=== PATIENT | female | born 1935 | race Caucasian/White ===

== ENCOUNTER 2018-08-03 18:54 | Inpatient (IN) | payer MEDICARE, OTHER ==
[~2018-08-03] VITALS: Ht 165.1 cm; Wt 60.9 kg
[~2018-08-03 18:54] MED LIST: ACET500 PO; AMLO5 PO; ASCO1ER PO; ASPI81CH PO; ASPI81EC; Antivert25 MG PO; BENAML20/5 PO; CARB200 PO; Colace100 MG PO; DIPH50 PO; ERGO400 PO; ESOM20 PO; FAMO40 PO; HYDACE5 PO; HYDACE5325 PO; HYOS0.375T; Icaps Tablet1 EACH PO; Keflex500 MG PO; MAGOXI400 PO; NEXIUM PO; Naprosyn500 MG PO; OMEP20ER; OMEP20ER PO; OXYACE5T PO; POTCHL20ER PO; SENEXON-S TABL1 EACH PO; TOCO400 PO; Valium5 MG PO; Vitamin C100 M1 PO; Zofran Odt4 MG SL; [UNRECOGNIZED DRUG - CODE] PO; [UNRECOGNIZED DRUG - OTHER]
[2018-08-03] MEDS ORDERED: FISH OIL 1,0001 EAC1 PO (19:23)
[2018-08-03] MEDS ORDERED: ESOM20 PO (19:24)
[2018-08-03] MEDS ORDERED: Vitamin B Comple1 EA PO (19:25)
[2018-08-03] MEDS ORDERED: HYDCHL12.5 PO (19:26)
[2018-08-03] MEDS ORDERED: Super Calcium600 MG PO (19:28)
[2018-08-03] MEDS ORDERED: LOSARTAN POTAS100 MG PO (19:29)
[2018-08-03 20:45] LABS: Bilirubin, Urine Neg (Neg); Blood, Urine Neg (Neg); Glucose Qualitative, Urine Neg (Neg); Ketones, Urine Neg (Neg); Leukocyte Esterase, Urine Neg (Neg); Nitrite, Urine Neg (Neg); Protein, Urine Neg (Neg); Specific Gravity, Urine 1.005 (1.003-1.022); Urobilinogen, Urine NORM (Normal)
[2018-08-03 20:50] LABS: Appearance, Urine Clear (Clear); Color, Urine Yellow (P-Yellow)
[2018-08-03 21:04] LABS: BASOPHILS ABSOLUTE AUTO 0.03 K/mm3 (0.00-0.23); BASOPHILS PERCENT AUTO 0 % (0-2); EOSINOPHILS ABSOLUTE AUTO 0.01 K/mm3 (0.00-0.68); EOSINOPHILS PERCENT AUTO 0 % (0-6); Hematocrit 34.5 % (33.0-51.0); IMMATURE GRAN PERCENT AUTO 1 % (0-1); LYMPHOCYTES ABSOLUTE AUTO 0.75 K/mm3 (0.84-5.20); LYMPHOCYTES PERCENT AUTO 4 % (21-46); MONOCYTES PERCENT AUTO 4 % (4-13); Mean Corpuscular HGB 31.3 pg (26.0-34.0); Mean Corpuscular HGB Conc 34.8 g/dL (31.5-36.5); Mean Corpuscular Volume 90 fL (80-100); Mean Platelet Volume 9.3 fL (9.1-12.4); NEUTROPHILS ABSOLUTE AUTO 18.19 K/mm3 (1.96-9.15); NEUTROPHILS PERCENT AUTO 91 % (41-73); Platelet Count 219 K/mm3 (150-400); RDW Coefficient Variation 12.2 % (11.7-14.2); Red Blood Cell Count 3.84 M/mm3 (3.80-5.20); White Blood Cell Count 19.88 K/mm3 (4.00-11.30)
[2018-08-03 21:18] LABS: International Normalized Ratio 1.02; Prothrombin Time Results 10.5 Sec (9.7-11.5)
[2018-08-03 21:29] LABS: Alanine Aminotransfer (ALT/SGP 25 U/L (12-78); Albumin, Blood 3.7 g/dL (3.4-5.0); Albumin/Globulin Ratio 1.2 (0.8-1.8); Alk Phos 105 U/L (50-136); Anion Gap 9 mmol/L (6-16); Aspartate Aminotrans (AST/SGOT 19 U/L (12-37); Bilirubin, Total 0.3 mg/dL (0.1-1.0); Blood Urea Nitrogen 11 mg/dL (8-24); Bun/Creatinine Ratio 17.8 (12.0-20.0); CO2, Blood 26 mmol/L (21-32); Calcium, Blood 8.4 mg/dL (8.5-10.1); Chloride, Blood 90 mmol/L (98-108); Creatinine, Blood 0.62 mg/dL (0.40-1.00); Glomerular Filtration Rate >60 (60-); Glucose, Blood 155 mg/dL (70-99); Potassium, Blood 3.5 mmol/L (3.5-5.5); Sodium, Blood 125 mmol/L (136-145); Total Protein, Blood 6.7 g/dL (6.4-8.2)
[2018-08-04] MEDS ORDERED: LOVA40 PO (22:30)
[2018-08-04] MEDS ORDERED: SLOW FE142 MG PO (22:32)
[2018-08-04] MEDS ORDERED: ACET500 PO (22:33)
[2018-08-06 05:53] LABS: BASOPHILS ABSOLUTE AUTO 0.03 K/mm3 (0.00-0.23); BASOPHILS PERCENT AUTO 0 % (0-2); EOSINOPHILS ABSOLUTE AUTO 0.11 K/mm3 (0.00-0.68); EOSINOPHILS PERCENT AUTO 1 % (0-6); Hematocrit 25.6 % (33.0-51.0); IMMATURE GRAN ABSOLUTE AUTO 0.07 K/mm3 (0.00-0.10); IMMATURE GRAN PERCENT AUTO 1 % (0-1); LYMPHOCYTES ABSOLUTE AUTO 1.57 K/mm3 (0.84-5.20); LYMPHOCYTES PERCENT AUTO 17 % (21-46); MONOCYTES ABSOLUTE AUTO 0.96 K/mm3 (0.16-1.47); MONOCYTES PERCENT AUTO 10 % (4-13); Mean Corpuscular HGB Conc 35.2 g/dL (31.5-36.5); Mean Corpuscular Volume 88 fL (80-100); Mean Platelet Volume 9.8 fL (9.1-12.4); NEUTROPHILS ABSOLUTE AUTO 6.73 K/mm3 (1.96-9.15); NEUTROPHILS PERCENT AUTO 71 % (41-73); Platelet Count 145 K/mm3 (150-400); RDW Coefficient Variation 12.3 % (11.7-14.2); RDW Standard Deviation 39.8 fL (35.1-46.3); White Blood Cell Count 9.47 K/mm3 (4.00-11.30)
[2018-08-06 06:09] LABS: Anion Gap 9 mmol/L (6-16); Blood Urea Nitrogen 7 mg/dL (8-24); Bun/Creatinine Ratio 14.4 (12.0-20.0); CO2, Blood 28 mmol/L (21-32); Calcium, Blood 8.2 mg/dL (8.5-10.1); Chloride, Blood 91 mmol/L (98-108); Creatinine, Blood 0.49 mg/dL (0.40-1.00); Glomerular Filtration Rate >60 (60-); Glucose, Blood 101 mg/dL (70-99); Potassium, Blood 3.3 mmol/L (3.5-5.5); Sodium, Blood 128 mmol/L (136-145)
[2018-08-07 09:37] LABS: Anion Gap 7 mmol/L (6-16); Blood Urea Nitrogen 6 mg/dL (8-24); Bun/Creatinine Ratio 12.2 (12.0-20.0); CO2, Blood 28 mmol/L (21-32); Calcium, Blood 8.5 mg/dL (8.5-10.1); Chloride, Blood 96 mmol/L (98-108); Creatinine, Blood 0.49 mg/dL (0.40-1.00); Glomerular Filtration Rate >60 (60-); Glucose, Blood 138 mg/dL (70-99); Potassium, Blood 3.4 mmol/L (3.5-5.5); Sodium, Blood 131 mmol/L (136-145)
== END 2018-08-07 16:30 | DRG 481 ==
LOC: ER 18:54 → SURS 21:16
PROVIDERS: Emergency Medicine; Family Medicine; Hospitalist; Orthopaedic Surgery
PROC: 0QS604Z Reposition Right Upper Femur with Internal Fixation Device, Open Approach (ICD-10-PCS; principal; 2018-08-05 11:25)
DX: S72.141A Displaced intertrochanteric fracture of right femur, initial encounter for closed fracture (principal); E87.1 Hypo-osmolality and hyponatremia; Z79.82 Long term (current) use of aspirin; G40.909 Epilepsy, unspecified, not intractable, without status epilepticus; K21.9 Gastro-esophageal reflux disease without esophagitis; E78.5 Hyperlipidemia, unspecified; I10 Essential (primary) hypertension; H35.30 Unspecified macular degeneration; V48.4XXA Person boarding or alighting a car injured in noncollision transport accident, initial encounter; F03.90 Unspecified dementia, unspecified severity, without behavioral disturbance, psychotic disturbance, mood disturbance, and anxiety; R06.02 Shortness of breath; E87.6 Hypokalemia; R41.0 Disorientation, unspecified; T40.605A Adverse effect of unspecified narcotics, initial encounter; Y92.239 Unspecified place in hospital as the place of occurrence of the external cause
CPT/HCPCS: 36415; 51702; 71045; 73502; 80048; 80053; 81003; 82330; 83880; 85025; 85610; 86850; 86900; 86901; 93005; 93010; 96361; 96374; 96375; 97110; 97116; 97162; 97530; 99285-25; C1713; C1769; G8978; G8979; J0690; J1100; J1170; J1885; J2370; J2405; J3010; J3480; J7030; J7120

== ENCOUNTER 2018-09-01 12:57 | Emergency (ER) | payer MEDICARE, OTHER ==
[~2018-09-01] VITALS: Ht 162.6 cm; Wt 63.5 kg
[~2018-09-01 12:57] MED LIST changes: +FISH OIL 1,0001 EAC1 PO; +HYDCHL12.5 PO; +LOSARTAN POTAS100 MG PO; +LOVA40 PO; +SLOW FE142 MG PO; +Super Calcium600 MG PO; +Vitamin B Comple1 EA PO
[2018-09-01 13:18] LABS: Source, Urine Catheter
[2018-09-01] MEDS ORDERED: CALCA400CH PO (13:21)
[2018-09-01] MEDS ORDERED: AMLO5 PO (13:21)
[2018-09-01] MEDS ORDERED: ASPI81CH PO (13:21)
[2018-09-01] MEDS ORDERED: CARB200 PO (13:21)
[2018-09-01] MEDS ORDERED: HYDCHL12.5 PO (13:22)
[2018-09-01] MEDS ORDERED: LOSA50 PO (13:22)
[2018-09-01] MEDS ORDERED: ESOM20 (13:22)
[2018-09-01] MEDS ORDERED: LOVA40 (13:22)
[2018-09-01] MEDS ORDERED: MAGOXI400 PO (13:23)
[2018-09-01] MEDS ORDERED: POTCHL20ER PO (13:23)
[2018-09-01] MEDS ORDERED: OMEG1CAP30 (13:23)
[2018-09-01] MEDS ORDERED: SLOW FE142 MG PO (13:23)
[2018-09-01] MEDS ORDERED: Milk Of Ma400 MG/5 M PO (13:23)
[2018-09-01] MEDS ORDERED: TOCO1000 PO (13:24)
[2018-09-01] MEDS ORDERED: CHOL10002 (13:24)
[2018-09-01 13:25] LABS: BASOPHILS ABSOLUTE AUTO 0.01 K/mm3 (0.00-0.23); BASOPHILS PERCENT AUTO 0 % (0-2); EOSINOPHILS ABSOLUTE AUTO 0.01 K/mm3 (0.00-0.68); EOSINOPHILS PERCENT AUTO 0 % (0-6); Hematocrit 33.6 % (33.0-51.0); Hemoglobin 11.1 g/dL (11.5-16.0); IMMATURE GRAN ABSOLUTE AUTO 0.02 K/mm3 (0.00-0.10); IMMATURE GRAN PERCENT AUTO 1 % (0-1); LYMPHOCYTES ABSOLUTE AUTO 0.71 K/mm3 (0.84-5.20); LYMPHOCYTES PERCENT AUTO 18 % (21-46); MONOCYTES ABSOLUTE AUTO 0.43 K/mm3 (0.16-1.47); MONOCYTES PERCENT AUTO 11 % (4-13); Mean Corpuscular HGB 31.4 pg (26.0-34.0); Mean Corpuscular Volume 95 fL (80-100); Mean Platelet Volume 9.4 fL (9.1-12.4); NEUTROPHILS ABSOLUTE AUTO 2.87 K/mm3 (1.96-9.15); NEUTROPHILS PERCENT AUTO 71 % (41-73); Platelet Count 226 K/mm3 (150-400); RDW Coefficient Variation 14.1 % (11.7-14.2); RDW Standard Deviation 48.9 fL (35.1-46.3); Red Blood Cell Count 3.54 M/mm3 (3.80-5.20); White Blood Cell Count 4.05 K/mm3 (4.00-11.30)
[2018-09-01 13:28] LABS: Appearance, Urine Hazy (Clear); Bilirubin, Urine Neg (Neg); Blood, Urine 1+ (Neg); Color, Urine Yellow (P-Yellow); Glucose Qualitative, Urine Neg (Neg); Ketones, Urine Neg (Neg); Leukocyte Esterase, Urine Neg (Neg); Nitrite, Urine Neg (Neg); Protein, Urine 1+ (Neg); Urobilinogen, Urine NORM (Normal)
[2018-09-01 13:36] LABS: Alanine Aminotransfer (ALT/SGP 20 U/L (12-78); Albumin, Blood 3.2 g/dL (3.4-5.0); Albumin/Globulin Ratio 0.9 (0.8-1.8); Alk Phos 214 U/L (50-136); Anion Gap 6 mmol/L (6-16); Aspartate Aminotrans (AST/SGOT 28 U/L (12-37); Bilirubin, Total 0.1 mg/dL (0.1-1.0); Blood Urea Nitrogen 9 mg/dL (8-24); Bun/Creatinine Ratio 12.9 (12.0-20.0); CO2, Blood 28 mmol/L (21-32); Calcium, Blood 8.4 mg/dL (8.5-10.1); Chloride, Blood 96 mmol/L (98-108); Globulin, Blood 3.6 g/dL (2.2-4.0); Glomerular Filtration Rate >60 (60-); Glucose, Blood 94 mg/dL (70-99); Potassium, Blood 3.7 mmol/L (3.5-5.5); Sodium, Blood 130 mmol/L (136-145); Total Protein, Blood 6.8 g/dL (6.4-8.2)
[2018-09-01 13:38] LABS: Amorphous Light ({null, 0-Heavy}); Bacteria Rare /hpf; Squamous Epithelial Cells Rare /hpf (Few); White Blood Cells, Urine 0-2 /hpf (0-5)
== END 2018-09-01 16:28 | disposition home or self-care (01) ==
LOC: ER 12:57
PROVIDERS: Internal Medicine
DX: R05 Cough (principal); R50.9 Fever, unspecified; Z79.899 Other long term (current) drug therapy; Z79.82 Long term (current) use of aspirin; G40.909 Epilepsy, unspecified, not intractable, without status epilepticus; E78.5 Hyperlipidemia, unspecified; I10 Essential (primary) hypertension
CPT/HCPCS: 36415; 71046; 80053; 81001; 82947; 85025; 93005; 93010; 96365; 96375; 99284-25; J0456; J0696; J7050; P9612

== ENCOUNTER 2018-09-15 00:51 | Emergency (ER) | payer MEDICARE, OTHER ==
[~2018-09-15] VITALS: Ht 170.2 cm; Wt 61.2 kg
[~2018-09-15 00:51] MED LIST changes: +CALCA400CH PO; +CHOL10002; +ESOM20; +LOSA50 PO; +LOVA40; +Milk Of Ma400 MG/5 M PO; +OMEG1CAP30; +TOCO1000 PO
[2018-09-15] MEDS ORDERED: HYDCHL50 PO (01:24)
[2018-09-15 01:31] LABS: BASOPHILS ABSOLUTE AUTO 0.02 K/mm3 (0.00-0.23); BASOPHILS PERCENT AUTO 0 % (0-2); EOSINOPHILS ABSOLUTE AUTO 0.01 K/mm3 (0.00-0.68); EOSINOPHILS PERCENT AUTO 0 % (0-6); Hematocrit 36.7 % (33.0-51.0); Hemoglobin 12.2 g/dL (11.5-16.0); IMMATURE GRAN ABSOLUTE AUTO 0.02 K/mm3 (0.00-0.10); IMMATURE GRAN PERCENT AUTO 0 % (0-1); LYMPHOCYTES ABSOLUTE AUTO 1.17 K/mm3 (0.84-5.20); LYMPHOCYTES PERCENT AUTO 12 % (21-46); MONOCYTES ABSOLUTE AUTO 0.65 K/mm3 (0.16-1.47); MONOCYTES PERCENT AUTO 7 % (4-13); Mean Corpuscular HGB 31.2 pg (26.0-34.0); Mean Corpuscular HGB Conc 33.2 g/dL (31.5-36.5); Mean Corpuscular Volume 94 fL (80-100); Mean Platelet Volume 9.4 fL (9.1-12.4); NEUTROPHILS ABSOLUTE AUTO 7.56 K/mm3 (1.96-9.15); NEUTROPHILS PERCENT AUTO 80 % (41-73); Platelet Count 326 K/mm3 (150-400); RDW Standard Deviation 44.9 fL (35.1-46.3); Red Blood Cell Count 3.91 M/mm3 (3.80-5.20); White Blood Cell Count 9.43 K/mm3 (4.00-11.30)
[2018-09-15 01:44] LABS: Alanine Aminotransfer (ALT/SGP 21 U/L (12-78); Albumin, Blood 3.2 g/dL (3.4-5.0); Albumin/Globulin Ratio 0.8 (0.8-1.8); Alk Phos 157 U/L (50-136); Anion Gap 10 mmol/L (6-16); Aspartate Aminotrans (AST/SGOT 20 U/L (12-37); Bilirubin, Total 0.4 mg/dL (0.1-1.0); Blood Urea Nitrogen 17 mg/dL (8-24); Bun/Creatinine Ratio 25.1 (12.0-20.0); CO2, Blood 25 mmol/L (21-32); Calcium, Blood 9.2 mg/dL (8.5-10.1); Chloride, Blood 99 mmol/L (98-108); Creatinine, Blood 0.68 mg/dL (0.40-1.00); Globulin, Blood 3.9 g/dL (2.2-4.0); Glomerular Filtration Rate >60 (60-); Glucose, Blood 109 mg/dL (70-99); Potassium, Blood 3.5 mmol/L (3.5-5.5); Sodium, Blood 134 mmol/L (136-145); Total Protein, Blood 7.1 g/dL (6.4-8.2); Troponin I <0.015 ng/mL (0.000-0.040)
[2018-09-15 02:30] LABS: Source, Urine Catheter
[2018-09-15 02:33] LABS: Appearance, Urine Clear (Clear); Bilirubin, Urine Neg (Neg); Blood, Urine Neg (Neg); Color, Urine Amber (P-Yellow); Glucose Qualitative, Urine Neg (Neg); Ketones, Urine 3+ (Neg); Leukocyte Esterase, Urine 1+ (Neg); Nitrite, Urine Neg (Neg); Protein, Urine 2+ (Neg); Specific Gravity, Urine 1.015 (1.003-1.022); Urobilinogen, Urine NORM (Normal); pH, Urine 6.5 (5.0-8.0)
[2018-09-15 02:46] LABS: Bacteria Few /hpf; Red Blood Cells, Urine 0-2 /hpf (0-2); Squamous Epithelial Cells Not Seen /hpf (Few); White Blood Cells, Urine 0-2 /hpf (0-5)
[2018-09-15 02:51] LABS: Influenza A Negative (NEGATIVE); Influenza B Negative (NEGATIVE)
== END 2018-09-15 04:17 | disposition home or self-care (01) ==
LOC: ER 00:51
PROVIDERS: Emergency Medicine
DX: R53.1 Weakness (principal); I10 Essential (primary) hypertension; E78.5 Hyperlipidemia, unspecified; Z88.5 Allergy status to narcotic agent; Z91.011 Allergy to milk products; Z79.899 Other long term (current) drug therapy; Z79.82 Long term (current) use of aspirin
CPT/HCPCS: 36415; 71046; 80053; 81001; 84484; 85025; 87086; 87804; 93005; 93010; 99285-25

== ENCOUNTER 2018-09-20 01:29 | Emergency (ER) | payer MEDICARE, OTHER ==
[~2018-09-20] VITALS: Ht 170.2 cm; Wt 68.0 kg
[~2018-09-20 01:29] MED LIST changes: +HYDCHL50 PO
[2018-09-20 01:51] LABS: BASOPHILS ABSOLUTE AUTO 0.01 K/mm3 (0.00-0.23); BASOPHILS PERCENT AUTO 0 % (0-2); EOSINOPHILS PERCENT AUTO 0 % (0-6); IMMATURE GRAN ABSOLUTE AUTO 0.03 K/mm3 (0.00-0.10); IMMATURE GRAN PERCENT AUTO 1 % (0-1); LYMPHOCYTES ABSOLUTE AUTO 2.14 K/mm3 (0.84-5.20); LYMPHOCYTES PERCENT AUTO 37 % (21-46); MONOCYTES ABSOLUTE AUTO 0.45 K/mm3 (0.16-1.47); MONOCYTES PERCENT AUTO 8 % (4-13); Mean Corpuscular HGB 30.8 pg (26.0-34.0); Mean Corpuscular HGB Conc 33.3 g/dL (31.5-36.5); Mean Corpuscular Volume 92 fL (80-100); Mean Platelet Volume 9.2 fL (9.1-12.4); NEUTROPHILS ABSOLUTE AUTO 3.14 K/mm3 (1.96-9.15); NEUTROPHILS PERCENT AUTO 54 % (41-73); Platelet Count 315 K/mm3 (150-400); RDW Coefficient Variation 12.9 % (11.7-14.2); RDW Standard Deviation 44.1 fL (35.1-46.3); White Blood Cell Count 5.77 K/mm3 (4.00-11.30)
[2018-09-20 02:10] LABS: Albumin, Blood 3.3 g/dL (3.4-5.0); Bilirubin, Total 0.2 mg/dL (0.1-1.0); Bun/Creatinine Ratio 12.1 (12.0-20.0); Calcium, Blood 9.2 mg/dL (8.5-10.1); Creatinine, Blood 0.99 mg/dL (0.40-1.00); Globulin, Blood 3.4 g/dL (2.2-4.0); Potassium, Blood 3.5 mmol/L (3.5-5.5); Total Protein, Blood 6.7 g/dL (6.4-8.2)
[2018-09-20 02:46] LABS: Source, Urine Clean Catch
[2018-09-20 02:58] LABS: Bilirubin, Urine Neg (Neg); Blood, Urine Neg (Neg); Glucose Qualitative, Urine Neg (Neg); Ketones, Urine 1+ (Neg); Leukocyte Esterase, Urine Neg (Neg); Nitrite, Urine Neg (Neg); Protein, Urine 1+ (Neg); Urobilinogen, Urine NORM (Normal)
[2018-09-20 03:20] LABS: Appearance, Urine Clear (Clear); Color, Urine Yellow (P-Yellow)
[2018-09-20 03:41] LABS: U Amphetamine Screen Not Detected; U Barbituate Screen Not Detected; U Benzodiazapine Screen Not Detected; U Buprenorphine Screen Not Detected; U Cannabinoids Screen Not Detected; U Cocaine Screen Not Detected; U Methadone Screen Not Detected; U Methamphetamine Screen Not Detected; U Opiates Screen Not Detected; U Oxycodone Screen Not Detected; U Phencyclidine Screen Not Detected; U Propoxyphene Screen Not Detected
[2018-09-20 03:44] LABS: Carbamazepine 9.3 ug/mL (4.0-12.0)
== END 2018-09-20 04:03 | disposition home or self-care (01) ==
LOC: ER 01:29
PROVIDERS: Emergency Medicine
DX: R41.82 Altered mental status, unspecified (principal); R11.0 Nausea; I10 Essential (primary) hypertension; E78.5 Hyperlipidemia, unspecified; Z88.5 Allergy status to narcotic agent; Z88.8 Allergy status to other drugs, medicaments and biological substances; Z91.011 Allergy to milk products; Z79.899 Other long term (current) drug therapy; Z79.82 Long term (current) use of aspirin
CPT/HCPCS: 36415; 71046; 80053; 80156; 82947; 85025; 93005; 93010; 96360; 96361; 99285-25; J7030; P9612

== ENCOUNTER → 2018-11-08 | Outpatient (CLI) | payer MEDICARE, OTHER | END | disposition home or self-care (01) | LOC: LAB SHORT 19:20 → LAB EV 19:20 | DX: R30.0 Dysuria (principal) | CPT/HCPCS: 87086 ==

== ENCOUNTER 2019-02-13 19:30 | Emergency (ER) | payer MEDICARE, OTHER ==
[~2019-02-13] VITALS: Ht 162.6 cm; Wt 52.2 kg
[2019-02-13 19:52] LABS: BASOPHILS ABSOLUTE AUTO 0.01 K/mm3 (0.00-0.23); BASOPHILS PERCENT AUTO 0 % (0-2); EOSINOPHILS ABSOLUTE AUTO 0.01 K/mm3 (0.00-0.68); EOSINOPHILS PERCENT AUTO 0 % (0-6); Hematocrit 32.6 % (33.0-51.0); Hemoglobin 11.6 g/dL (11.5-16.0); IMMATURE GRAN ABSOLUTE AUTO 0.01 K/mm3 (0.00-0.10); IMMATURE GRAN PERCENT AUTO 0 % (0-1); LYMPHOCYTES ABSOLUTE AUTO 1.85 K/mm3 (0.84-5.20); LYMPHOCYTES PERCENT AUTO 26 % (21-46); MONOCYTES ABSOLUTE AUTO 0.55 K/mm3 (0.16-1.47); MONOCYTES PERCENT AUTO 8 % (4-13); Mean Corpuscular HGB 32.1 pg (26.0-34.0); Mean Corpuscular HGB Conc 35.6 g/dL (31.5-36.5); Mean Corpuscular Volume 90 fL (80-100); Mean Platelet Volume 9.7 fL (9.1-12.4); NEUTROPHILS ABSOLUTE AUTO 4.62 K/mm3 (1.96-9.15); NEUTROPHILS PERCENT AUTO 66 % (41-73); Platelet Count 241 K/mm3 (150-400); RDW Standard Deviation 39.8 fL (35.1-46.3); Red Blood Cell Count 3.61 M/mm3 (3.80-5.20); White Blood Cell Count 7.05 K/mm3 (4.00-11.30)
[2019-02-13 20:10] LABS: Alanine Aminotransfer (ALT/SGP 22 U/L (12-78); Albumin, Blood 3.8 g/dL (3.4-5.0); Albumin/Globulin Ratio 1.2 (0.8-1.8); Alk Phos 128 U/L (50-136); Anion Gap 10 mmol/L (6-16); Aspartate Aminotrans (AST/SGOT 24 U/L (12-37); Bilirubin, Total 0.6 mg/dL (0.1-1.0); Blood Urea Nitrogen 16 mg/dL (8-24); Bun/Creatinine Ratio 21.8 (12.0-20.0); CO2, Blood 25 mmol/L (21-32); Calcium, Blood 9.1 mg/dL (8.5-10.1); Chloride, Blood 95 mmol/L (98-108); Creatinine, Blood 0.73 mg/dL (0.40-1.00); Globulin, Blood 3.2 g/dL (2.2-4.0); Glomerular Filtration Rate >60 (60-); Glucose, Blood 114 mg/dL (70-99); Potassium, Blood 3.4 mmol/L (3.5-5.5); Sodium, Blood 130 mmol/L (136-145); Troponin I <0.015 ng/mL (0.000-0.040)
== END 2019-02-13 21:40 | disposition home or self-care (01) ==
LOC: ER 19:30
PROVIDERS: Student in an Organized Health Care Education/Training Program
DX: R55 Syncope and collapse (principal); Z88.5 Allergy status to narcotic agent; Z88.8 Allergy status to other drugs, medicaments and biological substances; Z91.011 Allergy to milk products; Z79.899 Other long term (current) drug therapy; Z79.82 Long term (current) use of aspirin; G40.909 Epilepsy, unspecified, not intractable, without status epilepticus; E78.5 Hyperlipidemia, unspecified; I10 Essential (primary) hypertension
CPT/HCPCS: 36415; 71046; 73030; 80053; 82947; 83735; 84484; 85025; 93005; 93010; 99284-25

== ENCOUNTER 2019-03-06 22:59 | Emergency (ER) | payer MEDICARE, OTHER ==
[~2019-03-06] VITALS: Ht 162.6 cm; Wt 63.5 kg
[2019-03-07] MEDS ORDERED: HYDR1TAB94 PO (00:34)
== END 2019-03-07 00:57 | disposition home or self-care (01) ==
LOC: ER 22:59
DX: S40.011A Contusion of right shoulder, initial encounter (principal); W06.XXXA Fall from bed, initial encounter; Z88.5 Allergy status to narcotic agent; Z88.8 Allergy status to other drugs, medicaments and biological substances; Z91.011 Allergy to milk products; Z79.899 Other long term (current) drug therapy; Z79.82 Long term (current) use of aspirin; G40.909 Epilepsy, unspecified, not intractable, without status epilepticus
CPT/HCPCS: 73030; 99283-25; A9270-GY

== ENCOUNTER 2019-05-07 16:56 | Emergency (ER) | payer MEDICARE, OTHER ==
[~2019-05-07] VITALS: Ht 165.1 cm; Wt 61.2 kg
[~2019-05-07 16:56] MED LIST changes: +HYDR1TAB94 PO
[2019-05-07 17:21] LABS: BASOPHILS ABSOLUTE AUTO 0.02 K/mm3 (0.00-0.23); BASOPHILS PERCENT AUTO 0 % (0-2); EOSINOPHILS ABSOLUTE AUTO 0.07 K/mm3 (0.00-0.68); EOSINOPHILS PERCENT AUTO 1 % (0-6); Hematocrit 32.2 % (33.0-51.0); Hemoglobin 11.1 g/dL (11.5-16.0); IMMATURE GRAN ABSOLUTE AUTO 0.03 K/mm3 (0.00-0.10); IMMATURE GRAN PERCENT AUTO 1 % (0-1); LYMPHOCYTES PERCENT AUTO 30 % (21-46); MONOCYTES ABSOLUTE AUTO 0.53 K/mm3 (0.16-1.47); MONOCYTES PERCENT AUTO 9 % (4-13); Mean Corpuscular HGB 31.5 pg (26.0-34.0); Mean Corpuscular HGB Conc 34.5 g/dL (31.5-36.5); Mean Corpuscular Volume 92 fL (80-100); Mean Platelet Volume 9.2 fL (9.1-12.4); NEUTROPHILS ABSOLUTE AUTO 3.26 K/mm3 (1.96-9.15); NEUTROPHILS PERCENT AUTO 58 % (41-73); Platelet Count 244 K/mm3 (150-400); RDW Coefficient Variation 12.6 % (11.7-14.2); RDW Standard Deviation 41.9 fL (35.1-46.3); Red Blood Cell Count 3.52 M/mm3 (3.80-5.20); White Blood Cell Count 5.61 K/mm3 (4.00-11.30)
[2019-05-07 17:42] LABS: Source, Urine Catheter
[2019-05-07 17:51] LABS: Alanine Aminotransfer (ALT/SGP 19 U/L (12-78); Albumin, Blood 3.4 g/dL (3.4-5.0); Albumin/Globulin Ratio 1.1 (0.8-1.8); Alk Phos 120 U/L (50-136); Anion Gap 7 mmol/L (6-16); Aspartate Aminotrans (AST/SGOT 17 U/L (12-37); Bilirubin, Total 0.2 mg/dL (0.1-1.0); Blood Urea Nitrogen 15 mg/dL (8-24); Bun/Creatinine Ratio 22.2 (12.0-20.0); CO2, Blood 27 mmol/L (21-32); Calcium, Blood 8.5 mg/dL (8.5-10.1); Chloride, Blood 95 mmol/L (98-108); Creatinine, Blood 0.68 mg/dL (0.40-1.00); Globulin, Blood 3.2 g/dL (2.2-4.0); Glomerular Filtration Rate >60 (60-); Glucose, Blood 107 mg/dL (70-99); Potassium, Blood 3.3 mmol/L (3.5-5.5); Sodium, Blood 129 mmol/L (136-145); Total Protein, Blood 6.6 g/dL (6.4-8.2); Troponin I <0.015 ng/mL (0.000-0.040)
[2019-05-07 17:52] LABS: Bilirubin, Urine Neg (Neg); Blood, Urine Neg (Neg); Glucose Qualitative, Urine Neg (Neg); Ketones, Urine Neg (Neg); Leukocyte Esterase, Urine 1+ (Neg); Nitrite, Urine Neg (Neg); Protein, Urine 1+ (Neg); Urobilinogen, Urine NORM (Normal)
[2019-05-07 18:07] LABS: Appearance, Urine Clear (Clear); Color, Urine Yellow (P-Yellow)
[2019-05-07 18:09] LABS: Bacteria Few /hpf; Red Blood Cells, Urine 0-2 /hpf (0-2); Squamous Epithelial Cells Few /hpf (Few)
[2019-05-07] MEDS ORDERED: LOSARTAN POTAS100 MG PO (18:46)
== END 2019-05-07 18:58 | disposition home or self-care (01) ==
LOC: ER 16:56
PROVIDERS: Emergency Medicine
DX: R41.82 Altered mental status, unspecified (principal); Z88.5 Allergy status to narcotic agent; Z88.8 Allergy status to other drugs, medicaments and biological substances; Z91.011 Allergy to milk products; Z79.899 Other long term (current) drug therapy; Z79.82 Long term (current) use of aspirin; G40.909 Epilepsy, unspecified, not intractable, without status epilepticus; E78.5 Hyperlipidemia, unspecified; I10 Essential (primary) hypertension; F03.90 Unspecified dementia, unspecified severity, without behavioral disturbance, psychotic disturbance, mood disturbance, and anxiety; K21.9 Gastro-esophageal reflux disease without esophagitis; Z86.73 Personal history of transient ischemic attack (TIA), and cerebral infarction without residual deficits
CPT/HCPCS: 70450; 71046; 80053; 81001; 84484; 85025; 87086; 93005; 93010; 99285-25

== ENCOUNTER 2019-05-15 13:57 | Emergency (ER) | payer MEDICARE, OTHER ==
[~2019-05-15] VITALS: Ht 165.1 cm; Wt 54.4 kg
[2019-05-15 14:26] LABS: BASOPHILS ABSOLUTE AUTO 0.03 K/mm3 (0.00-0.23); BASOPHILS PERCENT AUTO 1 % (0-2); EOSINOPHILS ABSOLUTE AUTO 0.07 K/mm3 (0.00-0.68); EOSINOPHILS PERCENT AUTO 1 % (0-6); Hemoglobin 12.8 g/dL (11.5-16.0); IMMATURE GRAN ABSOLUTE AUTO 0.02 K/mm3 (0.00-0.10); IMMATURE GRAN PERCENT AUTO 0 % (0-1); LYMPHOCYTES ABSOLUTE AUTO 1.73 K/mm3 (0.84-5.20); LYMPHOCYTES PERCENT AUTO 27 % (21-46); MONOCYTES PERCENT AUTO 8 % (4-13); Mean Corpuscular HGB 32.2 pg (26.0-34.0); Mean Corpuscular HGB Conc 34.6 g/dL (31.5-36.5); Mean Corpuscular Volume 93 fL (80-100); Mean Platelet Volume 9.3 fL (9.1-12.4); NEUTROPHILS ABSOLUTE AUTO 4.12 K/mm3 (1.96-9.15); NEUTROPHILS PERCENT AUTO 64 % (41-73); Platelet Count 264 K/mm3 (150-400); RDW Coefficient Variation 12.5 % (11.7-14.2); RDW Standard Deviation 42.9 fL (35.1-46.3); Red Blood Cell Count 3.97 M/mm3 (3.80-5.20); White Blood Cell Count 6.47 K/mm3 (4.00-11.30)
[2019-05-15 14:49] LABS: Alanine Aminotransfer (ALT/SGP 19 U/L (12-78); Albumin, Blood 3.6 g/dL (3.4-5.0); Alk Phos 137 U/L (50-136); Anion Gap 9 mmol/L (6-16); Aspartate Aminotrans (AST/SGOT 18 U/L (12-37); Bilirubin, Total 0.2 mg/dL (0.1-1.0); Blood Urea Nitrogen 15 mg/dL (8-24); Bun/Creatinine Ratio 26.3 (12.0-20.0); CO2, Blood 26 mmol/L (21-32); Calcium, Blood 8.9 mg/dL (8.5-10.1); Chloride, Blood 96 mmol/L (98-108); Creatinine, Blood 0.57 mg/dL (0.40-1.00); Globulin, Blood 3.6 g/dL (2.2-4.0); Glomerular Filtration Rate >60 (60-); Glucose, Blood 93 mg/dL (70-99); Potassium, Blood 3.4 mmol/L (3.5-5.5); Sodium, Blood 131 mmol/L (136-145); Total Protein, Blood 7.2 g/dL (6.4-8.2); Troponin I <0.015 ng/mL (0.000-0.040)
[2019-05-15] MEDS ORDERED: MEMA5TAB PO (17:30)
[2019-05-15] MEDS ORDERED: Norco 5-325 Ta1 EACH PO (17:35)
== END 2019-05-15 17:45 | disposition home or self-care (01) ==
LOC: ER 13:57
PROVIDERS: Physician Assistant
DX: R07.9 Chest pain, unspecified (principal); G40.909 Epilepsy, unspecified, not intractable, without status epilepticus; I10 Essential (primary) hypertension; F03.90 Unspecified dementia, unspecified severity, without behavioral disturbance, psychotic disturbance, mood disturbance, and anxiety; Z79.899 Other long term (current) drug therapy
CPT/HCPCS: 36415; 71046; 80053; 84484; 85025; 93005; 93010; 99284-25

== ENCOUNTER 2019-05-24 18:10 | Emergency (ER) | payer MEDICARE, OTHER ==
[~2019-05-24] VITALS: Ht 170.2 cm; Wt 56.7 kg
[~2019-05-24 18:10] MED LIST changes: +MEMA5TAB PO; +Norco 5-325 Ta1 EACH PO
[2019-05-24] MEDS ORDERED: [UNRECOGNIZED DRUG - REMARK] (19:14)
[2019-05-24] MEDS ORDERED: ONDA4ODT MM (21:43)
[2019-05-24] MEDS ORDERED: Norco 5-325 Ta1 EACH PO (21:43)
[2019-05-24] MEDS ORDERED: IBUP400 PO (21:43)
== END 2019-05-24 22:40 | disposition home or self-care (01) ==
LOC: ER 18:10
DX: S22.21XA Fracture of manubrium, initial encounter for closed fracture (principal); M54.6 Pain in thoracic spine; G89.29 Other chronic pain; I10 Essential (primary) hypertension; K21.9 Gastro-esophageal reflux disease without esophagitis; Z86.73 Personal history of transient ischemic attack (TIA), and cerebral infarction without residual deficits; Z88.5 Allergy status to narcotic agent; Z88.8 Allergy status to other drugs, medicaments and biological substances; Z91.011 Allergy to milk products; Z79.899 Other long term (current) drug therapy; Z79.82 Long term (current) use of aspirin; W01.10XA Fall on same level from slipping, tripping and stumbling with subsequent striking against unspecified object, initial encounter
CPT/HCPCS: 70450; 71045; 72125; 72128; 72131; 73030; 96374; 99284-25; A9270; A9270-GY; J3010

== ENCOUNTER 2019-09-14 08:28 | Emergency (ER) | payer MEDICARE, OTHER ==
[~2019-09-14] VITALS: Ht 162.6 cm; Wt 59.0 kg
[~2019-09-14 08:28] MED LIST changes: +IBUP400 PO; +ONDA4ODT MM; +[UNRECOGNIZED DRUG - REMARK]
[2019-09-14 08:59] LABS: BASOPHILS ABSOLUTE AUTO 0.04 K/mm3 (0.00-0.23); BASOPHILS PERCENT AUTO 1 % (0-2); EOSINOPHILS ABSOLUTE AUTO 0.08 K/mm3 (0.00-0.68); EOSINOPHILS PERCENT AUTO 2 % (0-6); Hematocrit 34.4 % (33.0-51.0); Hemoglobin 11.8 g/dL (11.5-16.0); IMMATURE GRAN ABSOLUTE AUTO 0.01 K/mm3 (0.00-0.10); IMMATURE GRAN PERCENT AUTO 0 % (0-1); LYMPHOCYTES ABSOLUTE AUTO 1.52 K/mm3 (0.84-5.20); LYMPHOCYTES PERCENT AUTO 35 % (21-46); MONOCYTES ABSOLUTE AUTO 0.35 K/mm3 (0.16-1.47); MONOCYTES PERCENT AUTO 8 % (4-13); Mean Corpuscular HGB 32.2 pg (26.0-34.0); Mean Corpuscular HGB Conc 34.3 g/dL (31.5-36.5); Mean Corpuscular Volume 94 fL (80-100); NEUTROPHILS ABSOLUTE AUTO 2.41 K/mm3 (1.96-9.15); NEUTROPHILS PERCENT AUTO 55 % (41-73); Platelet Count 227 K/mm3 (150-400); RDW Coefficient Variation 12.4 % (11.7-14.2); RDW Standard Deviation 43.2 fL (35.1-46.3); Red Blood Cell Count 3.66 M/mm3 (3.80-5.20); White Blood Cell Count 4.41 K/mm3 (4.00-11.30)
[2019-09-14 09:08] LABS: Source, Urine Catheter
[2019-09-14 09:12] LABS: Alanine Aminotransfer (ALT/SGP 27 U/L (12-78); Albumin, Blood 3.4 g/dL (3.4-5.0); Albumin/Globulin Ratio 1.1 (0.8-1.8); Alk Phos 90 U/L (50-136); Anion Gap 6 mmol/L (6-16); Aspartate Aminotrans (AST/SGOT 19 U/L (12-37); Bilirubin, Total 0.4 mg/dL (0.1-1.0); Blood Urea Nitrogen 11 mg/dL (8-24); Bun/Creatinine Ratio 19.4 (12.0-20.0); CO2, Blood 27 mmol/L (21-32); Chloride, Blood 98 mmol/L (98-108); Creatinine, Blood 0.57 mg/dL (0.40-1.00); Globulin, Blood 3.1 g/dL (2.2-4.0); Glomerular Filtration Rate >60 (60-); Glucose, Blood 93 mg/dL (70-99); Potassium, Blood 3.4 mmol/L (3.5-5.5); Sodium, Blood 131 mmol/L (136-145); Total Protein, Blood 6.5 g/dL (6.4-8.2)
[2019-09-14 09:17] LABS: Bilirubin, Urine Neg (Neg); Blood, Urine Neg (Neg); Glucose Qualitative, Urine Neg (Neg); Ketones, Urine Neg (Neg); Leukocyte Esterase, Urine Neg (Neg); Nitrite, Urine Neg (Neg); Protein, Urine 1+ (Neg); Urobilinogen, Urine NORM (Normal)
[2019-09-14 09:26] LABS: Appearance, Urine Hazy (Clear); Color, Urine Yellow (P-Yellow); White Blood Cells, Urine 0-2 /hpf (0-5)
[2019-09-14 09:27] LABS: Bacteria Mod /hpf; Red Blood Cells, Urine 0-2 /hpf (0-2); Squamous Epithelial Cells Rare /hpf (Few)
[2019-09-14 09:28] LABS: Amorphous Mod (0-Heavy); Hyaline Casts 0-2 /lpf (0-2)
[2019-09-14 10:23] LABS: Carbamazepine 6.5 ug/mL (4.0-12.0)
== END 2019-09-14 10:20 | disposition home or self-care (01) ==
LOC: ER 08:28
PROVIDERS: Emergency Medicine
DX: G40.909 Epilepsy, unspecified, not intractable, without status epilepticus (principal); F03.90 Unspecified dementia, unspecified severity, without behavioral disturbance, psychotic disturbance, mood disturbance, and anxiety; I10 Essential (primary) hypertension; E78.5 Hyperlipidemia, unspecified; Z88.5 Allergy status to narcotic agent; Z91.011 Allergy to milk products; Z79.899 Other long term (current) drug therapy; Z79.82 Long term (current) use of aspirin; Z86.73 Personal history of transient ischemic attack (TIA), and cerebral infarction without residual deficits
CPT/HCPCS: 36415; 80053; 80156; 81001; 85025; 87086; 99284; P9612

== ENCOUNTER 2019-10-10 16:20 | Emergency (ER) | payer MEDICARE, OTHER ==
[~2019-10-10] VITALS: Ht 154.9 cm; Wt 81.7 kg
[2019-10-10 17:19] LABS: BASOPHILS ABSOLUTE AUTO 0.01 K/mm3 (0.00-0.23); BASOPHILS PERCENT AUTO 0 % (0-2); EOSINOPHILS ABSOLUTE AUTO 0.08 K/mm3 (0.00-0.68); EOSINOPHILS PERCENT AUTO 1 % (0-6); Hemoglobin 12.3 g/dL (11.5-16.0); IMMATURE GRAN ABSOLUTE AUTO 0.01 K/mm3 (0.00-0.10); IMMATURE GRAN PERCENT AUTO 0 % (0-1); LYMPHOCYTES ABSOLUTE AUTO 1.78 K/mm3 (0.84-5.20); LYMPHOCYTES PERCENT AUTO 29 % (21-46); MONOCYTES PERCENT AUTO 8 % (4-13); Mean Corpuscular HGB Conc 35.1 g/dL (31.5-36.5); Mean Corpuscular Volume 94 fL (80-100); NEUTROPHILS ABSOLUTE AUTO 3.86 K/mm3 (1.96-9.15); NEUTROPHILS PERCENT AUTO 62 % (41-73); Platelet Count 271 K/mm3 (150-400); RDW Coefficient Variation 12.3 % (11.7-14.2); RDW Standard Deviation 42.5 fL (35.1-46.3); Red Blood Cell Count 3.73 M/mm3 (3.80-5.20); White Blood Cell Count 6.24 K/mm3 (4.00-11.30)
[2019-10-10 17:41] LABS: Alanine Aminotransfer (ALT/SGP 28 U/L (12-78); Albumin, Blood 3.7 g/dL (3.4-5.0); Albumin/Globulin Ratio 1.1 (0.8-1.8); Alk Phos 101 U/L (50-136); Anion Gap 3 mmol/L (6-16); Aspartate Aminotrans (AST/SGOT 22 U/L (12-37); Bilirubin, Total 0.2 mg/dL (0.1-1.0); Blood Urea Nitrogen 15 mg/dL (8-24); Bun/Creatinine Ratio 26.7 (12.0-20.0); CO2, Blood 27 mmol/L (21-32); Calcium, Blood 9.4 mg/dL (8.5-10.1); Chloride, Blood 100 mmol/L (98-108); Creatinine, Blood 0.56 mg/dL (0.40-1.00); Globulin, Blood 3.4 g/dL (2.2-4.0); Glomerular Filtration Rate >60 (60-); Glucose, Blood 94 mg/dL (70-99); Potassium, Blood 3.9 mmol/L (3.5-5.5); Sodium, Blood 130 mmol/L (136-145); Total Protein, Blood 7.1 g/dL (6.4-8.2); Troponin I <0.015 ng/mL (0.000-0.040)
== END 2019-10-10 17:50 | disposition left against medical advice (07) ==
LOC: ER 16:20
PROVIDERS: Emergency Medicine
DX: Z53.21 Procedure and treatment not carried out due to patient leaving prior to being seen by health care provider (principal)
CPT/HCPCS: 36415; 71046; 80053; 84484; 85025; 93005; 93010

== ENCOUNTER 2020-03-17 11:32 | Emergency (ER) | payer MEDICARE, OTHER ==
[~2020-03-17] VITALS: Ht 167.6 cm; Wt 56.7 kg
[2020-03-17] MEDS ORDERED: TRAM50 PO (15:27)
== END 2020-03-17 15:25 | disposition home or self-care (01) ==
LOC: ER 11:32
DX: S32.009A Unspecified fracture of unspecified lumbar vertebra, initial encounter for closed fracture (principal); S05.12XA Contusion of eyeball and orbital tissues, left eye, initial encounter; Z91.011 Allergy to milk products; Z88.5 Allergy status to narcotic agent; Z88.8 Allergy status to other drugs, medicaments and biological substances; Z79.899 Other long term (current) drug therapy; Z79.82 Long term (current) use of aspirin; G40.909 Epilepsy, unspecified, not intractable, without status epilepticus; F03.90 Unspecified dementia, unspecified severity, without behavioral disturbance, psychotic disturbance, mood disturbance, and anxiety; I10 Essential (primary) hypertension; E78.5 Hyperlipidemia, unspecified; W18.30XA Fall on same level, unspecified, initial encounter
CPT/HCPCS: 70450; 72100; 99284-25

== ENCOUNTER 2020-08-16 00:14 | Inpatient (IN) | payer MEDICARE, OTHER ==
[~2020-08-16] VITALS: Ht 165.1 cm; Wt 52.1 kg
[~2020-08-16 00:14] MED LIST changes: +TRAM50 PO
[2020-08-16 00:42] LABS: BASOPHILS ABSOLUTE AUTO 0.02 K/mm3 (0.00-0.23); BASOPHILS PERCENT AUTO 0 % (0-2); EOSINOPHILS ABSOLUTE AUTO 0.08 K/mm3 (0.00-0.68); EOSINOPHILS PERCENT AUTO 2 % (0-6); Hemoglobin 12.2 g/dL (11.5-16.0); IMMATURE GRAN ABSOLUTE AUTO 0.01 K/mm3 (0.00-0.10); IMMATURE GRAN PERCENT AUTO 0 % (0-1); LYMPHOCYTES ABSOLUTE AUTO 1.13 K/mm3 (0.84-5.20); LYMPHOCYTES PERCENT AUTO 24 % (21-46); MONOCYTES ABSOLUTE AUTO 0.41 K/mm3 (0.16-1.47); MONOCYTES PERCENT AUTO 9 % (4-13); Mean Corpuscular HGB Conc 33.9 g/dL (31.5-36.5); Mean Corpuscular Volume 95 fL (80-100); Mean Platelet Volume 9.5 fL (9.1-12.4); NEUTROPHILS ABSOLUTE AUTO 3.07 K/mm3 (1.96-9.15); NEUTROPHILS PERCENT AUTO 65 % (41-73); Platelet Count 205 K/mm3 (150-400); RDW Coefficient Variation 12.8 % (11.7-14.2); RDW Standard Deviation 44.2 fL (35.1-46.3); Red Blood Cell Count 3.81 M/mm3 (3.80-5.20); White Blood Cell Count 4.72 K/mm3 (4.00-11.30)
[2020-08-16 00:57] LABS: International Normalized Ratio 0.99; Prothrombin Time Results 10.6 Sec (9.7-11.5)
[2020-08-16 01:03] LABS: Alanine Aminotransfer (ALT/SGP 17 U/L (12-78); Albumin, Blood 3.7 g/dL (3.4-5.0); Albumin/Globulin Ratio 1.1 (0.8-1.8); Alk Phos 96 U/L (50-136); Anion Gap 3 mmol/L (6-16); Aspartate Aminotrans (AST/SGOT 16 U/L (12-37); Bilirubin, Total 0.2 mg/dL (0.1-1.0); Blood Urea Nitrogen 18 mg/dL (8-24); Bun/Creatinine Ratio 22.9 (12.0-20.0); CO2, Blood 29 mmol/L (21-32); Calcium, Blood 9.5 mg/dL (8.5-10.1); Chloride, Blood 106 mmol/L (98-108); Creatinine, Blood 0.79 mg/dL (0.40-1.00); Ethanol (Alcohol), Blood, Med <3 mg/dL; Globulin, Blood 3.4 g/dL (2.2-4.0); Glomerular Filtration Rate >60 (60-); Glucose, Blood 116 mg/dL (70-99); Potassium, Blood 3.9 mmol/L (3.5-5.5); Sodium, Blood 138 mmol/L (136-145); Total Protein, Blood 7.1 g/dL (6.4-8.2)
[2020-08-16 01:22] LABS: Source, Urine Voided
[2020-08-16 01:25] LABS: Bilirubin, Urine Neg (Neg); Blood, Urine 1+ (Neg); Glucose Qualitative, Urine Neg (Neg); Ketones, Urine Neg (Neg); Leukocyte Esterase, Urine 1+ (Neg); Nitrite, Urine Neg (Neg); Protein, Urine 2+ (Neg); Specific Gravity, Urine 1.015 (1.003-1.022); Urobilinogen, Urine NORM (Normal)
[2020-08-16 01:28] LABS: Appearance, Urine Clear (Clear); Color, Urine Yellow (P-Yellow)
[2020-08-16 01:31] LABS: Amorphous Light (0-Heavy); Bacteria Few /hpf; Hyaline Casts 0-2 /lpf (0-2); Red Blood Cells, Urine 0-2 /hpf (0-2); Squamous Epithelial Cells Not Seen /hpf (Few)
[2020-08-16 01:35] LABS: U Amphetamine Screen Not Detected; U Barbituate Screen Not Detected; U Benzodiazapine Screen Not Detected; U Buprenorphine Screen Not Detected; U Cannabinoids Screen Not Detected; U Cocaine Screen Not Detected; U Methadone Screen Not Detected; U Methamphetamine Screen Not Detected; U Opiates Screen Not Detected; U Oxycodone Screen Not Detected; U Phencyclidine Screen Not Detected; U Propoxyphene Screen Not Detected
[2020-08-16 02:36] LABS: Troponin I <0.015 ng/mL (0.000-0.040)
--- NOTE | 2020-08-16 06:14 | NUR ---
PT UP TO ICU 15 FROM ED. PT IS ALERT HOWEVER SHE IS ONLY ORIENTED TO HER SELF. SHE CAN STATE HER FULL NAME BUT DOES NOT RECALL HER , WHAT TOWN SHE IS IN, THE YEAR, OR PLACE. SHE HYPERTENSIVE WITH SBP IN THE 170S, HR IN THE 60S. PULSES X 4-FAINT LUNG SOUNDS ARE WHEEZY IN UPPER LOBES. SPO2 >90% ON RA. BT PRESENT X 4. UNSURE IF PT IS INCONITNENT AT BASELINE BUT SHE HAS AN ATTENDS ON. SHE IS FORGETFUL AT TIMES BUT THUS FAR HAS BEEN REDIRECTABLE. ONE PIV IN LAC. PATENT AND SL. PT DOES NOT COMPLAIN OF DIZZINESS, SOB, CP. WILL CONTINUE TO MONITOR.
--- NOTE | 2020-08-16 08:00 | NUR ---
PT AWAKENED TO VOICE AND IS ALERT, ORIENTED TO SELF-COOPERATIVE WITH CARE. 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 FOLLOWS COMMANDS AND WILSON, BUT APPEARS GENERALLY WEAK. ECG SHOWS SR WITH 1ST DEGREE AV BLOCK. SBP 140'S. NO NOTED EDEMA OR SOB. LUNGS CLEAR-SATS>90% ON RA. PT DENIES NAUSEA OR GI DISTRESS. INCONTINENT OF SMALL AMOUNT OF FOUL SMELLING URINE. CECI CARE DONE AND ATTENDS CHANGED. SKIN IS CLEAR.
--- NOTE | 2020-08-16 08:20 | NUR ---
ATTEMPTED TO CONTACT PT NEXT OF KIN-DAUGHTER RAMA LISTED ON FACE SHEET. ATTEMPTED TO CONFIRM PT MEDS AND GET CONSENT FOR BLOOD PRODUCTS AND RELEASE OF INFORMATION. MESSAGE LEFT FOR RAMA TO CALL BACK.
--- NOTE | 2020-08-16 09:00 | NUR ---
FEM CATH UA SENT. PT VERY RED AND SMALL AMOUNT OF BLOOD AROUND THE MEATUS.
[2020-08-16 09:37] LABS: Carbamazepine 10.4 ug/mL (4.0-12.0)
[2020-08-16 09:43] LABS: Source, Urine Clean Catch
[2020-08-16 09:48] LABS: Appearance, Urine Hazy (Clear); Bilirubin, Urine Neg (Neg); Blood, Urine 5+ (Neg); Color, Urine Yellow (P-Yellow); Glucose Qualitative, Urine Neg (Neg); Ketones, Urine Neg (Neg); Leukocyte Esterase, Urine 2+ (Neg); Nitrite, Urine Neg (Neg); Protein, Urine 1+ (Neg); Specific Gravity, Urine 1.015 (1.003-1.022); Urobilinogen, Urine NORM (Normal); pH, Urine 6.5 (5.0-8.0)
[2020-08-16 09:58] LABS: Bacteria Mod /hpf; Red Blood Cells, Urine TNTC /hpf (0-2); Squamous Epithelial Cells Few /hpf (Few)
--- NOTE | 2020-08-16 09:59 | NUR ---
DR. SANTOS HERE TO SEE PT. PT TO HAVE ECHO AND HEART MONITOR TO BE WORN X [address] MOREAU UPDATED-PT MADE MED-TELE STATUS.
--- NOTE | 2020-08-16 11:07 | NUR ---
UPDATED MED LIST WITH PT DAUGHTER AND GAVE HER AN UPDATE REGARDING PT STATUS AND PLAN OF CARE. PHONED DR. MOREAU AND LET HER KNOW THAT THE MED LIST HAS BEEN RECONCILED. PT IS CONFUSED AND ATTEMPTS TO GET OOB AND OUT OF CHAIR WITHOUT REQUESTING HELP. SUELLEN PLACED FOR PT SAFETY.
--- NOTE | 2020-08-16 12:09 | NUR ---
PT REMAINS CONFUSED AND IMPULSIVE AT TIMES. CURRENTLY, SITTING UP IN CHAIR FEEDING HERSELF LUNCH WITHOUT DIFFICULTY. SUELLEN REMAINS IN PLACE.
--- NOTE | 2020-08-16 12:58 | NUR ---
AMBULATED PT TO BESIDE COMMODE AND AROUND THE ROOM-THEN BACK TO BED. PT IS INCREASINGLY AGITATED. ATTEMPTING TO GET OOB DESPITE SUELLEN VEST. PT PULLING ON ECG, IV-DR. MOREAU NOTIFIED AND ORDER OBTAINED FOR ZYPREXA 5 MG IMX1 NOW.
--- NOTE | 2020-08-16 13:35 | NUR ---
PT APPEARS TO BE SLEEPING-MED WITH ZYPREXA 5 MG IM @ 1305.
--- NOTE | 2020-08-16 14:24 | NUR ---
PT HAS ATTEMPTED TO VOID X4 WITHOUT SUCCESS. PT BECOMING RESTLESS AND AGITATED AGAIN-BLADDER SCAN DONE AND [address] MOREAU NOTIFIED AND ORDERS GIVEN.
[2020-08-16 14:39] LABS: Source, Urine Catheter
[2020-08-16 14:44] LABS: Appearance, Urine Hazy (Clear); Bilirubin, Urine Neg (Neg); Blood, Urine 5+ (Neg); Color, Urine Yellow (P-Yellow); Glucose Qualitative, Urine Neg (Neg); Ketones, Urine Neg (Neg); Leukocyte Esterase, Urine 3+ (Neg); Nitrite, Urine Neg (Neg); Protein, Urine Neg (Neg); Urobilinogen, Urine NORM (Normal); pH, Urine 6.5 (5.0-8.0)
[2020-08-16 14:55] LABS: Bacteria Rare /hpf; Renal Epithelial Mod /hpf (0-Rare); Squamous Epithelial Cells Not Seen /hpf (Few); Transitional Epithelial Cells Mod /hpf (0-Rare); White Blood Cells, Urine 50-100 /hpf (0-5)
--- NOTE | 2020-08-16 15:46 | NUR ---
PT LESS RESTLESS SINCE HALL INSERTED-1 LITER CLOUDY, YELLOW URINE SINCE HALL INSERTION. FIRST DOSE OF CEFTRIAXONE INFUSED. REPORT GIVEN TO ALFRED SANTOS IN PREP TO TRANSFER PT TO ROOM 346.
--- NOTE | 2020-08-16 16:16 | NUR ---
ICU TRANSFER TO RM 346 PT IS PLEASANT/TALKATIVE HOWEVER CONFUSED w HX DEMENTIA. IN SUELLEN RESTRAINT D/T FALL RISK, NONREDIRECTABLE. DX SYNCOPE. SHE STATE NO DIZZINESS @ REST. BP 169/71, HR 74. REORIENTED TO PLACE, REASON FOR HOSP, [place]. ASSISTED w COMFORT. FLUIDS SNACKS PROVIDED. REORIENTED TO USE OF CALL SYSTEM. BED ALARM ON.
--- NOTE | 2020-08-16 19:38 | NUR ---
VERIFIED VIDEO MONITORING CALLED [employer] TRUCK DRIVER AND VERIFIED VIDEO MONITORING
--- NOTE | 2020-08-17 04:40 | NUR ---
SHIFT SUMMARY ADMITTED FOR UTI/SYNCOPE. FULL CODE. TELEMETRY: NSR @ [address] IS PATENT. PT IS IN A SUELLEN AND BILAT WRIST RESTRAINTS DUE TO IMPULSIVENESS. SHE FREQUENTLY ATTEMPTS TO EXIT HER BED AND IS VERY WEAK AND CONFUSED. SHE LIVES WITH HER DAUGHTER. SEROQUEL DOSEAGE INCREASED THIS SHIFT DUE TO AGITATION. SHE DID NOT SLEEP THIS SHIFT. IV ANTIBIOTICS ARE SCHEDULED. VITAL SIGNS WERE WITHIN NORMAL LIMITS THIS SHIFT.
[2020-08-17 05:05] LABS: BASOPHILS ABSOLUTE AUTO 0.04 K/mm3 (0.00-0.23); BASOPHILS PERCENT AUTO 1 % (0-2); EOSINOPHILS ABSOLUTE AUTO 0.15 K/mm3 (0.00-0.68); EOSINOPHILS PERCENT AUTO 3 % (0-6); Hematocrit 34.1 % (33.0-51.0); Hemoglobin 11.5 g/dL (11.5-16.0); IMMATURE GRAN ABSOLUTE AUTO 0.01 K/mm3 (0.00-0.10); IMMATURE GRAN PERCENT AUTO 0 % (0-1); LYMPHOCYTES ABSOLUTE AUTO 1.66 K/mm3 (0.84-5.20); LYMPHOCYTES PERCENT AUTO 34 % (21-46); MONOCYTES PERCENT AUTO 10 % (4-13); Mean Corpuscular HGB 31.2 pg (26.0-34.0); Mean Corpuscular HGB Conc 33.7 g/dL (31.5-36.5); Mean Corpuscular Volume 92 fL (80-100); Mean Platelet Volume 9.7 fL (9.1-12.4); NEUTROPHILS ABSOLUTE AUTO 2.57 K/mm3 (1.96-9.15); NEUTROPHILS PERCENT AUTO 52 % (41-73); Platelet Count 191 K/mm3 (150-400); RDW Coefficient Variation 12.6 % (11.7-14.2); Red Blood Cell Count 3.69 M/mm3 (3.80-5.20); White Blood Cell Count 4.93 K/mm3 (4.00-11.30)
[2020-08-17 05:38] LABS: Alanine Aminotransfer (ALT/SGP 16 U/L (12-78); Albumin, Blood 3.3 g/dL (3.4-5.0); Albumin/Globulin Ratio 1.1 (0.8-1.8); Alk Phos 88 U/L (50-136); Anion Gap 4 mmol/L (6-16); Aspartate Aminotrans (AST/SGOT 10 U/L (12-37); Bilirubin, Total 0.3 mg/dL (0.1-1.0); Blood Urea Nitrogen 10 mg/dL (8-24); Bun/Creatinine Ratio 16.6 (12.0-20.0); CO2, Blood 29 mmol/L (21-32); Calcium, Blood 8.9 mg/dL (8.5-10.1); Chloride, Blood 108 mmol/L (98-108); Globulin, Blood 2.9 g/dL (2.2-4.0); Glomerular Filtration Rate >60 (60-); Glucose, Blood 84 mg/dL (70-99); Potassium, Blood 3.6 mmol/L (3.5-5.5); Sodium, Blood 141 mmol/L (136-145); Total Protein, Blood 6.2 g/dL (6.4-8.2)
--- NOTE | 2020-08-17 14:06 | NUR ---
PCU MX TECH TO REPORT BRADYCARDIA LOW 40'S. PT APPEARS TO BE SLEEPING ON ARRIVAL TO , HOWEVER DOES NOT AROUSE TO VERBAL STIM. BP LOW 69/31. PT ASSISTED FROM CHAIR TO BED. SHE OPENS EYES w AROUSAL. BP IMPROVE 102/71, HR 69. SAND WORKER NOTIFIED. DR ACEVEDO UPDATED. PALLIATIVE CARE CONSULTED.
--- NOTE | 2020-08-17 14:57 | NUR ---
Pt sleepy but arouses easily. She denies headaches or pain or nausea. She drank water but refused food. Repositioned pt review of pt with nursing pt has polst on file. Will review plan of care with physician.
--- NOTE | 2020-08-17 17:15 | NUR ---
SUMMARY THIS AM NOC RN REPORT PT RESTLESS/AGITATED T/O NIGHT, NO SLEEP, REQUIRED CONTINUING RESTRAINTS. MINIMAL SLEEP EARLY AM. @ ONSET OF DAY SHIFT PT WAS SLEEPING, ON AROUSAL SHE WAS BRIGHTER, CALM. INTERACTIVE ALTHOUGH CONFUSED, HX DEMENTIA. RESTRAINT D/C 1000 AM. SHE GOT UP 1 ASSIST TO CHAIR FOR LUNCH. AFTER LUNCH APPROX 1330 TELE MX CALL TO REPORT BRADYCARDIA, PT WAS VERY HARD TO AROUSE, SBP 60'S. DR ACEVEDO NOTIFIED, SIMILAR EVENT LEADING TO ADMISSION. WITHIN MINUTES PT RESPONSIVE, BP & HR IMPROVED W/O INTERVENTION. STATE PT MAY REQUIRE PACEMAKER, CARDIOLOGY HAS BEEN CONSULTED. ORDER PALLIATIVE CARE CONSULT TO MEET w PT'S DAUGHTER TO REVIEW FAMILY WISHES. CESAR Stephens RN MET w PT'S DAUGHTER RAMA IN ROOM, SHE STATE UNABLE TO MAKE DECISIONS W/O CONSULTING w REST OF FAMILY. PT REMAINS FULL CODE @ THIS TIME. PT INTERACTIVE @ DINNER, DAUGHTER @ BEDSIDE.
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
--- NOTE | 2020-08-17 19:47 | NUR ---
VERIFIED VIDEO MONITORING CALLED VIDEO BUILDINGS PAINTER AND VERIFIED VIDEO MONITORING IS IN PLACE
--- NOTE | 2020-08-18 04:42 | NUR ---
SHIFT SUMMARY ADMITTED FOR UTI, HYPOTENSION & BRADYCARDIC SPELLS. FULL CODE. PLAN IS FOR FAMILY TO DECIDE FUTURE PLAN OF CARE. NO HYPOTENSION OR BRADYCARDIA NOTED THIS SHIFT. PT SLEPT THROUGHOUT SHIFT. PT COOPERATIVE WITH CARE. DAUGHTER WAS AT BEDSIDE AT BEGINNING OF SHIFT. NO NEW CONCERNS THIS SHIFT.
--- NOTE | 2020-08-18 16:44 | NUR ---
PT IS ALERT ORIENTED TO SELF AND FAMILY, THE PT IS PLEASANT CALM AND COOPEERATIVE TODAY, THE PT APPEARS TO BE BREATHING EASILY ON RA AT THIS TIME, THE PT WAS UP INTO THE CHAIR FOR BREAKFAST AND LUNCH TODAY, THE PT WAS UP WITH THE PHYSICAL THERAPIST AND WALKED OUT INTO THE TELLEZ USEING THE FWW, THE PTS DAUGHRTER IS AT THE BEDSIDE, PALLIATATIVE CARE ALFRED HOLDER WAS IN TO TALK WITH THE PTS DAUGHTER, THE PT HAD A GOOD APPETITE TODAY, PT WAS ASSISTED WITH HER MEALS BY PEDRO PABLO SIMON, CALL LIGHT IN REACH THE PTS DAUGHTER IS AT THE BEDSIDE AT THIS TIME
--- NOTE | 2020-08-18 16:47 | NUR ---
Review of her day and plan of care she is still unsure about code status, She states her and her brother are leaning towarda dnr. She wants to try to review with mother. will meet with her tomorrow.
--- NOTE | 2020-08-18 19:18 | NUR ---
VERIFIED VIDEO MONITORING VERIFIED VIDEO MONITORING FOR THIS PT
--- NOTE | 2020-08-19 05:06 | NUR ---
SHIFT SUMMARY ADMITTED FOR UTI/SYNCOPE. BRIEF PERIODS OF HYPOTENSION AND BRADYCARDIA. FULL CODE. PT WAS NAUSEOUS AT BEGINNING OF SHIFT. NURSING STAFF AND PT'S DAUGHTER INFORMED ME THAT SHE HAD JUST EATEN A VERY LARGE MEAL. PT'S DAUGHTER INFORMED ME THAT SHE HAS DONE THIS AT HOME BEFORE, EATEN ALOT AND THEN BECAME SICK TO HER TUMMY. SHE WAS MEDICATED PER EMAR FOR NAUSEA. SHE VOMITED ONE TIME. FOLLOWING THAT SHE STATED SHE FELT BETTER AND SLEPT THE REST OF THE SHIFT. NO NEW CONCERNS.
--- NOTE | 2020-08-19 12:18 | NUR ---
Spiritual care note: Mrs. Saldaña is pleasant, soft-spoken and confused. She had trouble finding words and was confused about where she is. She appears frail. She appeared to enjoy companionship/encouragement. Prayer for healing at her request. No family present. Wheel Tuner services will remain available.
--- NOTE | 2020-08-19 18:47 | NUR ---
SHIFT SUMMARY SHAWNA ATE WELL AT EACH MEAL. DENIED PAIN. GOT ZOFRAN AT DINNER, FELT NAUSEOUS. CONSTIPATED, GAVE SENNA AND DR ACEVEDO ORDERED BOWEL PROTOCOL. HALL REMOVED AT 4PM, AWAITING FIRST VOID. WALKED UP IN ROOM WITH AO1. TOOK MEDS PRESCRIBED, CALL LIGHT IN REACH, WCTM
--- NOTE | 2020-08-20 04:49 | NUR ---
SENIOR INDUSTRIAL ENGINEER SUMMARY PT AAOX2, IS CONFUSED AND FORGETFUL AT TIMES. COMMUNICATES WELL BUT FORGETS WHERE SHE IS AND DIDN'T KNOW THE DATE. HALL CATH DC'D AT 1600 ON DAY SHIFT. EARLY ON IN SHIFT BLADDER SCAN SHOWED 300 ML URINE AND PT HAD NOT URINATED SINCE HALL REMOVED AT THAT POINT. ASSISTED PT TO BSC TO TRY AND URINATE AND PT WAS ABLE TO GO 275 ML. PT HAS URINATED MULTIPLE TIMES SINCE THEN. BP'S HAVE BEEN STABLE WITH SBP 130-150'S. VSS, WILL CONTINUE TO MONITOR
[2020-08-20] MEDS ORDERED: QUET25 PO (13:29)
[2020-08-20] MEDS ORDERED: FLOMAX0.4 MG PO (13:30)
--- NOTE | 2020-08-20 13:46 | NUR ---
SHIFT SUMMARY SHAWNA IS LEAVING BY CAR WITH HER DAUGHTER TO GO HOME. PIV REMOVED, MEDS FAXED TO [facility]. STICKERS PUT AT FRONT FOR F/U APPT WITH CARDS AND PCP AND FOR ZIO PATCH PLACEMENT ON SUNDAY. PT CONSTIPATED, GIVEN BOWEL PROTOCOL AND SUPPOSITORY AND ENEMA THIS SHIFT, SMALL HARD PELLET BM. EDUCATION GIVEN TO DAUGHTER TO CONTINUE BOWEL PROTOCOL.
== END 2020-08-20 15:50 | disposition home health service (06) | DRG 315 ==
LOC: ER 00:14 → ICUW 00:15 → MEDS 15:51
PROVIDERS: Emergency Medicine; Internal Medicine; ADMIT Family Medicine
DX: I95.9 Hypotension, unspecified (principal); N39.0 Urinary tract infection, site not specified; G93.40 Encephalopathy, unspecified; F03.91 Unspecified dementia, unspecified severity, with behavioral disturbance; R55 Syncope and collapse; G40.909 Epilepsy, unspecified, not intractable, without status epilepticus; Z51.5 Encounter for palliative care; R00.1 Bradycardia, unspecified; E78.5 Hyperlipidemia, unspecified; I10 Essential (primary) hypertension; K21.9 Gastro-esophageal reflux disease without esophagitis; Z86.73 Personal history of transient ischemic attack (TIA), and cerebral infarction without residual deficits; R33.9 Retention of urine, unspecified; Z78.1 Physical restraint status; Z20.828 Contact with and (suspected) exposure to other viral communicable diseases
CPT/HCPCS: 36415; 51701; 51702; 51703; 70450; 80053; 80156; 81001; 82533; 82947; 84443; 84484; 85025; 85610; 87086; 93005; 93010; 93306; 96365; 96366; 96372; 97116; 97161; 97530; 99285-25; A9270; G0008; G0378; G0480; J0696; J1650; J2405; J7050; P9612; Q2038

== ENCOUNTER 2020-12-08 10:02 | Day surgery (SDC) | payer MEDICARE, OTHER ==
[~2020-12-08 10:02] MED LIST changes: +DONE5 PO; +FLOMAX0.4 MG PO; +POTA10T PO; +QUET25 PO
--- NOTE | 2020-12-08 12:00 | NUR ---
PT OUT TO CAR VIA WHEELCHAIR, DAUGHTER VERBALIZED UNDERSTANDING OF DISCHARGE INSTRUCTIONS, WOUND CARE, AND FOLLOW UP INFORMATION.
== END 2020-12-08 22:47 | disposition home or self-care (01) ==
LOC: MHTC 10:02
DX: R55 Syncope and collapse (principal); I10 Essential (primary) hypertension; G40.909 Epilepsy, unspecified, not intractable, without status epilepticus; K21.9 Gastro-esophageal reflux disease without esophagitis; Z88.8 Allergy status to other drugs, medicaments and biological substances; Z91.011 Allergy to milk products
CPT/HCPCS: 33285; C1764

== ENCOUNTER 2022-07-19 13:28 | Emergency (ER) | payer MEDICARE, OTHER ==
[~2022-07-19] VITALS: Ht 170.2 cm; Wt 59.0 kg
[2022-07-19 15:55] LABS: BASOPHILS ABSOLUTE AUTO 0.02 K/mm3 (0.00-0.23); BASOPHILS PERCENT AUTO 0 % (0-2); EOSINOPHILS ABSOLUTE AUTO 0.12 K/mm3 (0.00-0.68); EOSINOPHILS PERCENT AUTO 2 % (0-6); Hematocrit 40.1 % (33.0-51.0); Hemoglobin 13.5 g/dL (11.5-16.0); IMMATURE GRAN ABSOLUTE AUTO 0.03 K/mm3 (0.00-0.10); IMMATURE GRAN PERCENT AUTO 1 % (0-1); LYMPHOCYTES ABSOLUTE AUTO 1.02 K/mm3 (0.84-5.20); LYMPHOCYTES PERCENT AUTO 18 % (21-46); MONOCYTES ABSOLUTE AUTO 0.51 K/mm3 (0.16-1.47); MONOCYTES PERCENT AUTO 9 % (4-13); Mean Corpuscular HGB 31.7 pg (26.0-34.0); Mean Corpuscular HGB Conc 33.7 g/dL (31.5-36.5); Mean Corpuscular Volume 94 fL (80-100); Mean Platelet Volume 10.3 fL (9.1-12.4); NEUTROPHILS ABSOLUTE AUTO 3.83 K/mm3 (1.96-9.15); NEUTROPHILS PERCENT AUTO 69 % (41-73); Platelet Count 162 K/mm3 (150-400); RDW Coefficient Variation 12.8 % (11.7-14.2); RDW Standard Deviation 44.1 fL (35.1-46.3); Red Blood Cell Count 4.26 M/mm3 (3.80-5.20); White Blood Cell Count 5.53 K/mm3 (4.00-11.30)
[2022-07-19 16:02] LABS: Source, Urine Straight Cath
[2022-07-19 16:07] LABS: Appearance, Urine Clear (Clear); Bilirubin, Urine Neg (Neg); Blood, Urine 1+ (Neg); Color, Urine Yellow (P-Yellow); Glucose Qualitative, Urine Neg (Neg); Ketones, Urine 2+ (Neg); Leukocyte Esterase, Urine Neg (Neg); Nitrite, Urine Neg (Neg); Protein, Urine 1+ (Neg); Urobilinogen, Urine NORM (Normal)
[2022-07-19 16:18] LABS: Red Blood Cells, Urine 0-2 /hpf (0-2); Squamous Epithelial Cells Few /hpf (Few); White Blood Cells, Urine 0-2 /hpf (0-5)
[2022-07-19 16:18] LABS: Magnesium, Blood 2.1 mg/dL (1.6-2.4)
[2022-07-19 16:19] LABS: Bacteria Few /hpf
[2022-07-19 16:20] LABS: Thyroid Stimulating Hormone 1.58 uIU/mL (0.360-4.800)
[2022-07-19 16:21] LABS: Albumin/Globulin Ratio 0.9 (0.8-1.8); Bilirubin, Total 0.3 mg/dL (0.1-1.0); Bun/Creatinine Ratio 27.8 (12.0-20.0); Calcium, Blood 8.5 mg/dL (8.5-10.1); Creatinine, Blood 0.58 mg/dL (0.40-1.00); Globulin, Blood 3.5 g/dL (2.2-4.0); Total Protein, Blood 6.5 g/dL (6.4-8.2)
[2022-07-19 16:33] LABS: Influenza A, PCR POSITIVE (NEGATIVE); Influenza B, PCR NEGATIVE (NEGATIVE); Resp Syncytial Virus, PCR NEGATIVE (NEGATIVE); SARS-Cov-2 (COVID-19) PCR, MMC NEGATIVE (NEGATIVE)
[2022-07-20] MEDS ORDERED: ONDA4ODT MM (08:48)
== END 2022-07-20 12:12 | disposition home or self-care (01) ==
LOC: ER 13:28
PROVIDERS: Student in an Organized Health Care Education/Training Program
DX: J10.1 Influenza due to other identified influenza virus with other respiratory manifestations (principal); R63.8 Other symptoms and signs concerning food and fluid intake; I10 Essential (primary) hypertension; Z20.822 Contact with and (suspected) exposure to COVID-19; Z88.8 Allergy status to other drugs, medicaments and biological substances; Z88.6 Allergy status to analgesic agent; Z91.011 Allergy to milk products; Z79.899 Other long term (current) drug therapy; Z79.82 Long term (current) use of aspirin
CPT/HCPCS: 0241U; 51701; 71045; 80053; 81001; 83605; 83690; 83735; 84443; 85025; 93005; 93010; J7030; J7121

== ENCOUNTER 2023-09-13 00:17 | Inpatient (IN) | payer MEDICARE, OTHER ==
[~2023-09-13] VITALS: Ht 165.1 cm; Wt 43.1 kg
[2023-09-13] VITALS (9 sets, daily range): BP systolic 111–173; BP diastolic 61–88
[~2023-09-13 00:17] MED LIST changes: +MEMA10 PO
[2023-09-13 00:44] LABS: BASOPHILS ABSOLUTE AUTO 0.02 K/mm3 (0.00-0.23); BASOPHILS PERCENT AUTO 0 % (0-2); EOSINOPHILS PERCENT AUTO 0 % (0-6); Hematocrit 41.3 % (33.0-51.0); IMMATURE GRAN ABSOLUTE AUTO 0.11 K/mm3 (0.00-0.10); IMMATURE GRAN PERCENT AUTO 1 % (0-1); LYMPHOCYTES ABSOLUTE AUTO 1.01 K/mm3 (0.84-5.20); LYMPHOCYTES PERCENT AUTO 5 % (21-46); MONOCYTES ABSOLUTE AUTO 0.71 K/mm3 (0.16-1.47); MONOCYTES PERCENT AUTO 4 % (4-13); Mean Corpuscular HGB 30.8 pg (26.0-34.0); Mean Corpuscular HGB Conc 33.9 g/dL (31.5-36.5); Mean Corpuscular Volume 91 fL (80-100); Mean Platelet Volume 9.4 fL (9.1-12.4); NEUTROPHILS ABSOLUTE AUTO 16.81 K/mm3 (1.96-9.15); NEUTROPHILS PERCENT AUTO 90 % (41-73); Platelet Count 334 K/mm3 (150-400); RDW Coefficient Variation 13.4 % (11.7-14.2); RDW Standard Deviation 44.7 fL (35.1-46.3); Red Blood Cell Count 4.54 M/mm3 (3.80-5.20); White Blood Cell Count 18.66 K/mm3 (4.00-11.30)
[2023-09-13 00:56] LABS: Albumin, Blood 2.2 g/dL (3.4-5.0); Albumin/Globulin Ratio 0.6 (0.8-1.8); Bilirubin, Total 0.7 mg/dL (0.1-1.0); Bun/Creatinine Ratio 39.8 (12.0-20.0); Calcium, Blood 8.5 mg/dL (8.5-10.1); Creatinine, Blood 0.63 mg/dL (0.40-1.00); Globulin, Blood 3.9 g/dL (2.2-4.0); Potassium, Blood 4.4 mmol/L (3.5-5.5); Total Protein, Blood 6.1 g/dL (6.4-8.2)
[2023-09-13 01:09] LABS: Source, Urine Straight Cath
[2023-09-13 01:13] LABS: Bilirubin, Urine Neg (Neg); Blood, Urine 5+ (Neg); Glucose Qualitative, Urine Neg (Neg); Ketones, Urine 1+ (Neg); Leukocyte Esterase, Urine 3+ (Neg); Nitrite, Urine Neg (Neg); Protein, Urine 4+ (Neg); Specific Gravity, Urine 1.015 (1.003-1.022); Urobilinogen, Urine NORM (Normal)
[2023-09-13 01:24] LABS: Appearance, Urine Turbid (Clear); Color, Urine Red (P-Yellow)
[2023-09-13 01:28] LABS: Bacteria Many /hpf; Red Blood Cells, Urine 50-100 /hpf (0-2); Squamous Epithelial Cells Not Seen /hpf (Few); White Blood Cells, Urine TNTC /hpf (0-5)
[2023-09-13 06:26] LABS: BASOPHILS ABSOLUTE AUTO 0.03 K/mm3 (0.00-0.23); BASOPHILS PERCENT AUTO 0 % (0-2); EOSINOPHILS PERCENT AUTO 0 % (0-6); Hematocrit 41.6 % (33.0-51.0); Hemoglobin 14.3 g/dL (11.5-16.0); IMMATURE GRAN ABSOLUTE AUTO 0.11 K/mm3 (0.00-0.10); IMMATURE GRAN PERCENT AUTO 1 % (0-1); LYMPHOCYTES PERCENT AUTO 9 % (21-46); MONOCYTES ABSOLUTE AUTO 1.13 K/mm3 (0.16-1.47); MONOCYTES PERCENT AUTO 5 % (4-13); Mean Corpuscular HGB 30.6 pg (26.0-34.0); Mean Corpuscular HGB Conc 34.4 g/dL (31.5-36.5); Mean Corpuscular Volume 89 fL (80-100); Mean Platelet Volume 9.5 fL (9.1-12.4); NEUTROPHILS ABSOLUTE AUTO 18.52 K/mm3 (1.96-9.15); NEUTROPHILS PERCENT AUTO 85 % (41-73); Platelet Count 362 K/mm3 (150-400); RDW Coefficient Variation 13.5 % (11.7-14.2); RDW Standard Deviation 43.8 fL (35.1-46.3); Red Blood Cell Count 4.68 M/mm3 (3.80-5.20); White Blood Cell Count 21.79 K/mm3 (4.00-11.30)
--- NOTE | 2023-09-13 06:34 | NUR ---
PT ARRIVED TO UNIT AT APPROXIMATELY 0544. SHE IS ALERT. UNABLE TO ASSESS ORIENTATION, PT IS NON-VERBAL. SHE TRACKS WITH HER EYES BUT DOES NOT FOLLOW COMMANDS. SHE IS ON RA AND MAINTAINING 02 SATURATION ABOVE 92%, NO USE OF ACCESSORY MUSCLES WHILE BREATHING, SYMMETRICAL RISE AND FALL OF CHEST. PT HR SR 90'S. SHE DOES NOT APPEAR TO BE IN PAIN, NO GRIMACING OR RESTLESNESS. PT IS INCONTINENT OF BLADDER AND BOWELS. BEDBATH PERFORMED WHEN PT ARRIVED TO UNIT. BLANCHABLE REDNESS TO COCCYX WITH SORE ON COCCYX BONE, PICTURE TAKEN. BARRIER CREAM APPLIED AND MEPILEX IN PLACE. BOTH HIPS FLOATED WITH PILLOWS. IV TO L AV IS PATENT AND RUNNING PER EMAR. MUSIC IS PLAYING IN ROOM, CALL LIGHT WITHIN REACH.
[2023-09-13 06:57] LABS: Albumin, Blood 2.3 g/dL (3.4-5.0); Albumin/Globulin Ratio 0.5 (0.8-1.8); Bilirubin, Total 0.6 mg/dL (0.1-1.0); Bun/Creatinine Ratio 50.8 (12.0-20.0); Calcium, Blood 8.9 mg/dL (8.5-10.1); Creatinine, Blood 0.47 mg/dL (0.40-1.00); Globulin, Blood 4.2 g/dL (2.2-4.0); Potassium, Blood 4.1 mmol/L (3.5-5.5); Total Protein, Blood 6.5 g/dL (6.4-8.2)
[2023-09-13] MEDS ORDERED: Nexium40 MG PO (08:59)
--- NOTE | 2023-09-13 09:01 | NUR ---
Spoke with the pt's daughter Meredith on the phone. She has been taking care of the pt for the past 5 years, since the pt had a stroke. States that the pt has been mostly non-verbal for the past year, but does still attempt to talk and some days can speak better than on others. The pt normally has a good appetite, but doesn't drink a lot of fluids; however, in the past week she has had a poor appetite and has also been getting sick at her stomach when she takes pills. She has been having increasing difficulty swallowing recently. Daughter states it's as if the pt has forgotten how to swallow pills and how to use a straw.
--- NOTE | 2023-09-13 09:32 | NUR ---
ATTEMPTED SONU BEDSIDE SWALLOW EVALUATION; HOWEVER, the pt is not able to follow directions to open her mough wide, move her tongue, nor to make facial expressions. She gives an occasional one word response, but does not make conversation and does not follow directions very well at all. She attempts to open her mouth slightly, but doesn't open more than a few millimeters.
--- NOTE | 2023-09-13 10:55 | NUR ---
Pt has been incontinent of urine in attends. Attempted fem cath; it was anatomically difficult and she is incontinent of urine before the cath is done so no urine was caught. Purewick in place at this time to obtain specimen. [place] Bedside swallow evaluation attempted. Pt was able to take water on a spoon and sips of water from medicine cup without noted difficulty. Difficult to assess as she is showing little expression and is non verbal. She gagged when attempted to take orange juice on spoon. Also gagged and coughed when given small spoon of applesauce. Call to attending MD to request speech therapy evaluation. Pt's daughter did say that the pt had difficulty swallowing lately, and was chewing her pills and then gagging on them, and had little appetite in the past week.
[2023-09-13 11:31] LABS: Source, Urine Fem Cath
[2023-09-13 13:29] LABS: Appearance, Urine Clear (Clear); Bilirubin, Urine Neg (Neg); Blood, Urine 5+ (Neg); Color, Urine Yellow (P-Yellow); Glucose Qualitative, Urine Neg (Neg); Ketones, Urine 1+ (Neg); Leukocyte Esterase, Urine 3+ (Neg); Nitrite, Urine Neg (Neg); Protein, Urine 2+ (Neg); Specific Gravity, Urine 1.015 (1.003-1.022); Urobilinogen, Urine NORM (Normal)
[2023-09-13 14:11] LABS: Bacteria Many /hpf; Squamous Epithelial Cells Few /hpf (Few); White Blood Cells, Urine 25-50 /hpf (0-5)
--- NOTE | 2023-09-13 16:14 | NUR ---
Oral care done, repositioned and offered clear liquids per diet orders. Pt gagged on the jello. Readily drank apple juice and water, without any observable difficulty. She is resting with her eyes closed now. HOB lowered.
[2023-09-14] VITALS (7 sets, daily range): BP systolic 127–149; BP diastolic 58–76
--- NOTE | 2023-09-14 04:56 | NUR ---
SHIFT SUMMARY PATIENT RESPONDS TO VERBAL STIMULI, FOLLOWS SOME SIMPLE COMMANDS AT TIMES. SOUNDS AND SAYS YES OCCASIONALLY, OTHERWISE NONVERBAL. 02 SATS 95% ON RA. HR SR 70s, BP STABLE. PUREWICK IN PLACE, URINE DARK/VARSHA. REPOSITIONED Q2 HOURS. CALL LIGHT IN REACH
--- NOTE | 2023-09-14 08:04 | NUR ---
transfer note this rn gave report to medical floor rn. patient vitals stable. patient left with all belongings.
--- NOTE | 2023-09-14 12:20 | NUR ---
MET WITH HUGO. SHE WAS SLEEPING AND APPEARED TO BE COMFORTABLE. SPOKE WITH BEDSIDE RN, AND REVIEWED NOTES FROM SPEECH THERAPY. SHAWNA HAD A DIFFICULT TIME SWALLOWING THIS MORNING. I CALLED DARSHANA DAUGHTER RAMA WATTS AND DISCUSSED HOW SHAWNA HAD BEEN DOING AT HOME. WE SPOKE ABOUT CODE STATUS AND LET HER KNOW THE POLST ON FILE WAS FROM 2018 WHICH WAS AROUND THE TIME SHAWNA HAD A CVA, AND WENT TO LIVE WITH RAMA. SHE WAS IN AGREEMENT THAT SHAWNA WOULD NOT WANT TO BE FULL CODE AT THIS STAGE AND WOULD BE BETTER A DNR CODE STATUS. I SPOLE WITH DR. WILDER AND UPDATED THE ORDER, AND NOTIFIED BEDSIDE RN. RAMA WILL BE IN TO VISIT HER MOM AT 1500 AND I WILL ROUND AT THAT TIME TO DISCUSS A NEW POLST AND DISCUSS IF SHE WOULD WANT A FEEDING TUBE IF IT CAME TO THAT PER DR. ISAAC REQUEST.
--- NOTE | 2023-09-14 17:13 | NUR ---
MET WITH SHAWNA AND HER DAUGHTER RAMA. WE DISCUSSED POLST FORM AND STARTED TO FILL IT OUT. RAMA WANTS TO DISCUSS IT WITH HER AUNT JARED. I REVIEWED THE DIFFERENCE BETWEEN COMFORT CARE AND LIMITED TREATMENT OPTIONS FOR SHAWNA. WE DISCUSSED THE POTENTIAL NEED FOR A FEEDING TUBE AND WHAT THAT MAY ENTAIL. WE SPOKE ABOUT POSSIBLE COMPLICATIONS OF DOING THIS PROCEDURE AND THE PROCESS OF THE BODY NATURALLY SHUTTING DOWN IF WE DID NOT PLACE A TUBE FOR ARTIFICAL NUTRITION. SHE IS NOT READY TO MAKE A DECISION ON THAT AT THIS TIME BUT WILL THINK ABOUT THOSE OPTIONS IF IT COMES TO A POINT THAT SHE NEEDS TO MAKE THAT CHOICE. SHAWNA IS CURRENTLY SLEEPING.
--- NOTE | 2023-09-14 18:00 | NUR ---
SHIFT SUMMARY PATIENT TRANSFERED UP FROM PCU THIS AM. PATIENT DIFFICULT TO AROUSE SOME TIMES. MAKING EYE CONTACT WHEN AWAKE BUT NOT VERBALIZING OR NODDING HEAD TO ANY QUESTIONS. PATIENT UNABLE TO FOLLOW ANY VERBAL CUES. BEDSIDE NURSING SWALLOW, PATIENT UNABLE TO FOLLOW ANY DIRECTION WITH SWALLOWING. UNABLE TO GIVE ANY PO MEDS BECAUSE OF RISK OF ASPIRATION. SPEECH ABLE TO RE EVALUATE PATIENT. PATIENT ABLE TO DRINK SOME FOR SPEECH BUT CHOKED ON JELLO. FAMILY IN TO SEE PATIENT AND TALK WITH PALLIATIVE CARE RELATED TO PLAN. PATIENT CHANGED TO DNR. PATIENT TURNED FREQUENTLY, PUREWICK IN PLACE,
[2023-09-15 02:42] VITALS: BP 144/70
--- NOTE | 2023-09-15 05:21 | NUR ---
SHIFT SUMMARY SHAWNA WAS ASLEEP ON ASSESMENT AND NOT ORIENTED. PT IS ROUSABLE TO TOUCH, AND SOMETIMES VOICE, BUT IS NOT RESPONDING IN ANY WAY THAT IS MEANINGFUL. SHE LOOKS AROUND A LITTLE AND GOES BACK TO SLEEP. PT NOT TOLERATING PO INTAKE AT THIS TIME, HOSPITALIST CONTACTED ABOUT HYDRATION CONCERNS, PT STARTED ON NS INFUSION NO ACUTE EVENTS OR CHANGES TO CONDITION TONIGHT. PT RESTING IN BED AT A LOW POSITION WITH BED ALARM PLACED.
[2023-09-15 07:51] VITALS: BP 156/65
[2023-09-15 11:33] LABS: Hematocrit 37.7 % (33.0-51.0); Hemoglobin 12.8 g/dL (11.5-16.0); Mean Corpuscular HGB 30.7 pg (26.0-34.0); Mean Corpuscular Volume 90 fL (80-100); Mean Platelet Volume 9.4 fL (9.1-12.4); Platelet Count 260 K/mm3 (150-400); RDW Coefficient Variation 13.5 % (11.7-14.2); RDW Standard Deviation 44.6 fL (35.1-46.3); Red Blood Cell Count 4.17 M/mm3 (3.80-5.20); White Blood Cell Count 8.27 K/mm3 (4.00-11.30)
[2023-09-15 11:56] LABS: Bun/Creatinine Ratio 35.4 (12.0-20.0); Calcium, Blood 8.3 mg/dL (8.5-10.1); Creatinine, Blood 0.34 mg/dL (0.40-1.00); Potassium, Blood 3.1 mmol/L (3.5-5.5)
--- NOTE | 2023-09-15 18:01 | NUR ---
SHIFT SUMMARY PATIENT CONTINUES TO BE NON COMMUNICATIVE. OCCASIONALLY OPENS EYES AND LOOKS AROUND THE ROOM. DOES NOT FOLLOW COMMANDS. PALLIATIVE CARE CONTINUES TO WORK WITH FAMILY. PURWICK REMOVED BECAUSE OF LEAKING. LABIA SKIN PEALING. PATIENT TURNED FREQUENTLY AND ATTENDS CHANGED NEEDED.
[2023-09-15 19:23] VITALS: BP 142/64
[2023-09-16 02:30] VITALS: BP 136/69
--- NOTE | 2023-09-16 04:31 | NUR ---
SHIFT SUMMARY SHAWNA WAS ASLEEP AND NOT ORIENTED TONIGHT ON ASSESSMENT. NO ACUTE EVENTS TONIGHT AND NO CHANGES TO PT CONDITION. SHE WAS MORE ALERT THIS SHIFT COMPARED TO LAST NIGHT, AND EVEN ASKED THE FITNESS SUPERVISOR WHAT SHE WAS DOING AT ONE POINT. PT RESTING IN BED AT A LOW POSITION WITH BED ALARM PLACED.
[2023-09-16 07:39] VITALS: BP 145/73
[2023-09-16 15:10] VITALS: BP 181/63
--- NOTE | 2023-09-16 18:49 | NUR ---
SHIFT SUMMARY PATIENT CONTINUES TO BE NON VERBAL. PATIENT DOES NOT FOLLOW ANY COMMANDS. OCCASIONALLY OPENS EYES AND LOOKS AROUND ROOM. ATTEMPTED TO PROVIDE CLEAR LIQUID DIET. AT DINNER PATIENT ABLE TO DRINK HER ENSURE CLEAR. AFTER DRINKING SHE STARTED COUGHING AND CONTINUED TO HAVE A WEAK COUGH FOR A FEW MINUTES AFTER. PATIENT TURNED FREQUENTLY AND REPOSITIONED. ATTENDS CHANGED FREQUENTLY. PUREWICK NOT USED BECAUSE OF LEAKAGE AND EXCORIATED LABIA. NO FAMILY NOTED TO BE PRESENT TODAY
[2023-09-16 19:45] VITALS: BP 148/69
[2023-09-17 04:14] VITALS: BP 176/76
[2023-09-17 04:32] VITALS: BP 150/74
--- NOTE | 2023-09-17 04:36 | NUR ---
AHIFT SUMMARY. PATIENT IS LETHARGIC AT THIS TIME. PATIENT NOT ANSWER QUESTIONS OR RESPONDING TO CARE BEING PROVIDED OR EXPLAINED. PATIENT WILL OPEN HER EYES AND LOOK AROUND BRIEFLY BEFORE CLOSING HER EYES. PATIENT REPOSITIONED AND CHANGED DURING ROUNDING. NO EVENTS NOTED THIS SHIFT. TELE IS ON WITH LEADS IN PLACE. IV INFUSING NS PER EMAR. BED IS LOCKED IN THE LOWEST POSITION WITH CALL LIGHT IN REACH. NO S/S OF DISTRESS NOTED AT THIS TIME. CARE ONGOING.
[2023-09-17 07:29] VITALS: BP 165/79
--- NOTE | 2023-09-17 10:42 | NUR ---
VISITED SHAWNA WHO WAS SLEEPING. SPOKE WITH BEDSIDE RN AND DR. WILDER ABOUT THIS PATIENT. SPOKE WITH SPEECH THERAPY WHO WILL REASSES SHAWNA TODAY. I CALLED RAMA TO SEE WHAT HER PRECEPTION OF HOW SHAWNA WAS DOING. SHE REPORTED THAT SHAWNA SEEMED TO BE FEELING MUCH BETTER, SHE WAS MORE LIKE HER NORMAL SELF. I LET HER KNOW THAT SPEECH THERAPY WOULD REASSESS HER TODAY AND WE WOULD FOLLOW UP WHEN SHE COMES IN TO VISIT HER MOM. I ASKED IF SHE HAD A CHANCE TO REVIEW THE POLST WITH HER AUNT JARED AND DISCUSS HOW SHAWNA WAS DOING AND IF THEY WOULD WANT A FEEDING TUBE IF THAT BECAME NECESSARY. RAMA SAID THAT SHE WAS GOING TO TALK TO JARED ABOUT IT TODAY BEFORE SHE CAME IN.
[2023-09-17 15:49] VITALS: BP 155/69
--- NOTE | 2023-09-17 19:27 | NUR ---
per jhon rain to discontinue tele monitor
--- NOTE | 2023-09-17 19:28 | NUR ---
PT RESPONDS TO PAINFUL STIMULI, NO EYE CONTACT. PALLIATIVE CARE INVOLVED. Q2HR TURNS. NO PO INTAKE. DOES NOT STAY AWAKE TO EAT SAFELY. PT DID EAT SOME YOGURT WITH ST TODAY BUT UNABLE TO RESPOND APPROPRIATELY. NO NEW PLANS AT THIS POINT. UNABLE TO MAKE NEEDS KNOWN.
[2023-09-17 19:38] VITALS: BP 178/81
[2023-09-18 04:13] VITALS: BP 171/80
--- NOTE | 2023-09-18 04:44 | NUR ---
SHIFT SUMMARY PATIENT HAD NO ACUTE CHANGES. NON-VERBAL AND NOT MAKING EYE CONTACT WITH OPEN EYES. BEDREST AND NPO. PIV REMAINS INTACT. NS INFUSING @ 75 mL/HR. IV KEPPRA AND IV ABX INFUSED. HYPERTENSIVE. NO S/SX OF PAIN, SOB, AND N/V. SLEPT MOST OF THE SHIFT. CALL LIGHT IN REACH. BED IN LOWEST POSITION. WILL CONTINUE TO MONITOR UNTIL DAY SHIFT NURSE ASSUMES CARE.
[2023-09-18 05:32] LABS: Hemoglobin 12.6 g/dL (11.5-16.0); Mean Corpuscular HGB 30.4 pg (26.0-34.0); Mean Corpuscular HGB Conc 33.2 g/dL (31.5-36.5); Mean Corpuscular Volume 92 fL (80-100); Mean Platelet Volume 10.1 fL (9.1-12.4); Platelet Count 252 K/mm3 (150-400); RDW Coefficient Variation 13.6 % (11.7-14.2); RDW Standard Deviation 44.7 fL (35.1-46.3); Red Blood Cell Count 4.14 M/mm3 (3.80-5.20); White Blood Cell Count 6.75 K/mm3 (4.00-11.30)
[2023-09-18 06:04] LABS: Albumin, Blood 2.2 g/dL (3.4-5.0); Anion Gap 5 mmol/L (6-16); Blood Urea Nitrogen 4 mg/dL (8-24); Bun/Creatinine Ratio 12.2 (12.0-20.0); CO2, Blood 25 mmol/L (21-32); Calcium, Blood 8.1 mg/dL (8.5-10.1); Chloride, Blood 108 mmol/L (98-108); Creatinine, Blood 0.33 mg/dL (0.40-1.00); Glomerular Filtration Rate 99 (60-); Glucose, Blood 80 mg/dL (70-99); Magnesium, Blood 1.7 mg/dL (1.6-2.4); Phosphorus, Blood 2.4 mg/dL (2.5-4.9); Potassium, Blood 2.8 mmol/L (3.5-5.5); Sodium, Blood 138 mmol/L (136-145)
[2023-09-18 07:46] VITALS: BP 192/73
[2023-09-18 15:51] VITALS: BP 185/74
--- NOTE | 2023-09-18 18:38 | NUR ---
SHIFT SUMMARY PATIENT CONTINUES TO BE NON INTERACTIVE. PATIENT HAS SLEEP WAKE CYCLES. WHEN AWAKE PATIENT LOOKS ABOUT ROOM BUT DOES NOT MAKE EYE CONTACT. PATIENT COOPERATIVE WITH CARE AND ATTEMPTS TO ASSIST LIKE LIFTING HEAD WHEN MOVING UP IN BED. PATIENT TURNED FREQUENTLY TO PREVENT SKIN BREAKDOWN. ATTENDS CHANGED NEEDED FOR INCONTINENCE. LABIA NO LONGER SLOUGHING OR RED. MEPILEX STILL IN PLACE. PALLIATIVE CARE WORKING WITH FAMILY AND TRANSITIONING TO HOSPICE.
--- NOTE | 2023-09-18 19:18 | NUR ---
Pt and daughter are known to this typewriter aligner. Follow up discussion on need for hospice. Review of care. Promoted comfort and dignity. Discussed hospice referal she is read went home to tell her brother.
[2023-09-18 19:35] VITALS: BP 152/77
[2023-09-19 03:23] VITALS: BP 150/82
--- NOTE | 2023-09-19 06:01 | NUR ---
SHIFT SUMMARY PTALERT BUT NON VERBAL THROUGH THE NIGHT. PT AWAKE IN ROOM OFF AND ON. NO ACUTE CHANGES THIS SHIFT. NO S/S PAIN. 09/19/23 PERCY DAVIS RN
[2023-09-19 06:40] LABS: Bun/Creatinine Ratio 13.8 (12.0-20.0); Calcium, Blood 8.2 mg/dL (8.5-10.1); Creatinine, Blood 0.36 mg/dL (0.40-1.00); Potassium, Blood 3.4 mmol/L (3.5-5.5)
[2023-09-19 08:00] VITALS: BP 161/82
[2023-09-19 15:40] VITALS: BP 151/66
--- NOTE | 2023-09-19 17:40 | NUR ---
Pt's daughter requests the next available hospice, does not have any preference.
--- NOTE | 2023-09-19 18:30 | NUR ---
SHIFT SUMMARY PATIENT CONTINUES TO BE RESTING. AROUSES WITH STIMULATION, DOES NOT MAKE EYE CONTACT. HAS HX OF MACULAR DEGENERATION. PATIENT CONTINUES TO NEED TO BE REPOSITIONED FREQUENTLY AND ATTENDS CHECKED AND CHANGED NEEDED WITH REPOSITIONING. DAUGHTER IN TO SEE PATIENT AND TALK WITH PALIATIVE CARE. PATIENT TO TRANSITION TO HOSPICE. PATIENT UNABLE TO SAFELY TAKE PO MEDICATIONS BECAUSE OF ASPIRATION RISK AND SPITTING CRUSHED MEDS OUT AND OR NOT TAKING THEM AT ALL.
[2023-09-19 19:36] VITALS: BP 176/73
[2023-09-19 21:44] VITALS: BP 178/80
[2023-09-19 23:37] VITALS: BP 162/80
[2023-09-20 03:14] VITALS: BP 154/72
--- NOTE | 2023-09-20 03:36 | NUR ---
SHIFT SUMMARY PATIENT APPEARS TOO DROWSY TO ATTEMPT TO SWALLOW SEIZURE MEDICATION NOTIFIED OSD CLERK PROVIDER WHO ORDERED A 1X DOSE OF HER PREVIOUS KEPPRA DOSING. ALSO NOTIFIED PROVIDER OF PATIENTS RANDOM BLOOD SUGAR CHECK OF 64. CHANGED NS INFUSION TO D5 1/2 NS. TURNING Q2.
[2023-09-20 07:26] VITALS: BP 155/79
[2023-09-20 15:00] VITALS: BP 130/62
--- NOTE | 2023-09-20 15:31 | NUR ---
SHIFT SUMMARY PATIENT HAS NOT BEEN ALERT AND NOT ORIENTED THIS SHIFT. PATIENT HAS NOT HAD ANY ACUTE EVENTS THIS SHIFT. VITAL SIGNS REVIEWED. PATIENT HAS BEEN SLEEPING AND DROWSY MOST OF SHIFT. PATIENT HAS NOT BEEN ALERT ENOUGH TO TAKE MEDICATIONS. PATIENT HAS NOT COMPLAINED OR NOTICED ANY PAIN, NAUSEA, SOB, OR VOMITTING. BED IN LOCKED AND LOWEST POSITION. CALL LIGHT IN PLACE. WILL MONITOR UNTIL SHIFT CHANGE.
[2023-09-20 19:26] VITALS: BP 154/74
[2023-09-21 02:48] VITALS: BP 170/79
[2023-09-21 02:50] VITALS: BP 165/83
--- NOTE | 2023-09-21 05:40 | NUR ---
SHIFT SUMMARY NOC PT A/O X NONCE, NON VERBAL AND SLEPT ENTIRETY OF SHIFT. PT INC OF URINE X 1. HS RX NOT GIVEN DUE TO HIGH ASPIRATION RISK. PT HAS D5W 1/2 NS @ 75 INFUSING DUE TO NPO STATUS. PT IS CURRENTLY RESTING WITH BED ALARM ON, BED IN LOWEST POSITION, AND CALL LIGHT WITHIN REACH.
[2023-09-21 07:10] VITALS: BP 151/76
--- NOTE | 2023-09-21 15:35 | NUR ---
PATIENT DISCHARGED TO HOME WITH HOSPICE. IV SALINE LOCK REMOVED WITHOUT INCIDENT. TELEPHONE OPERATOR FROM [facility] CAME TO BEDSIDE TO ADMIT PT. OFF UNIT VIA AMBULANCE AT 1334. NO PERSONAL BELONGINGS LEFT BEHIND IN ROOM.
== END 2023-09-21 13:34 | disposition hospice, home (50) | DRG 871 ==
LOC: ER 00:17 → MEDS 04:11 → PCU 04:11 → MEDS 09-14 08:26 → ENPENDDIS 09-21 10:44 → MEDS 09-21 13:34
PROVIDERS: Internal Medicine; Student in an Organized Health Care Education/Training Program; ADMIT Internal Medicine
DX: A41.9 Sepsis, unspecified organism (principal); G92.8 Other toxic encephalopathy; N39.0 Urinary tract infection, site not specified; F03.90 Unspecified dementia, unspecified severity, without behavioral disturbance, psychotic disturbance, mood disturbance, and anxiety; Z66 Do not resuscitate; R13.10 Dysphagia, unspecified; I10 Essential (primary) hypertension; E87.6 Hypokalemia; E78.5 Hyperlipidemia, unspecified; G40.909 Epilepsy, unspecified, not intractable, without status epilepticus; K44.9 Diaphragmatic hernia without obstruction or gangrene; Z86.73 Personal history of transient ischemic attack (TIA), and cerebral infarction without residual deficits; Z79.82 Long term (current) use of aspirin
CPT/HCPCS: 36415; 51701; 71046; 80048; 80053; 80069; 81001; 82947; 83605; 83735; 83880; 84132; 85025; 85027; 87040; 87077; 87086; 87186; 92526; 92610; 93005; 93010; 96365-59; 99285-25; A9270; J0360; J0696; J1650; J1953; J3480; J7030; J7042; J7050; P9047